=== PATIENT | male | born 1965 | race Caucasian/White ===

== ENCOUNTER 2018-05-05 15:46 | Emergency (ER) | payer MEDICARE, MEDICAID | END 2018-05-05 17:27 | disposition home or self-care (01) | LOC: M ED 15:46 | DX: K40.90 Unilateral inguinal hernia, without obstruction or gangrene, not specified as recurrent (principal); F10.10 Alcohol abuse, uncomplicated; F12.10 Cannabis abuse, uncomplicated; F17.210 Nicotine dependence, cigarettes, uncomplicated | CPT/HCPCS: 76857 ==

== ENCOUNTER 2018-07-31 16:53 | Emergency (ER) | payer MEDICARE, MEDICAID ==
[~2018-07-31] VITALS: Ht 175.3 cm; Wt 65.9 kg
[~2018-07-31 16:53] MED LIST: /PANT40TA PO; /THIA10TA OR; DILA100C PO; FOLI1TAB OR; THERAGRAM PO
[2018-07-31] MEDS ORDERED: PROZ10CA7 PO (17:05)
[2018-07-31] MEDS ORDERED: NS 1,000 ML IV ONE (17:30)
[2018-07-31] MEDS: MORPHINE 2 MG/ML 1ML SYRINGE (J2270) IV PRN ×2 (17:49→19:48)
[2018-07-31 18:03] LABS: BASO % 0.6 % (0.0-1.0); EOS # 0.1 10^3/uL (0.0-0.50); EOS % 1.7 % (0.0-3.0); HEMATOCRIT 42.9 % (42.0-52.0); HEMOGLOBIN 15.2 g/dl (13.5-17.5); LYMPH # 2.5 10^3/uL (1.5-4.5); LYMPH % 34.4 % (24.0-44.0); MEAN CORPUSCULAR HEMOGLOBIN 35.6 pg (27.0-33.0); MEAN CORPUSCULAR HGB CONC 35.4 g/dl (32.0-36.5); MEAN CORPUSCULAR VOLUME 100.5 fl (80.0-96.0); MONO # 0.7 10^3/uL (0.0-0.8); MONO % 9.1 % (0.0-5.0); NEUTROPHILS # 3.9 10^3/uL (1.8-7.7); NEUTROPHILS % 54.1 % (36.0-66.0); PLATELET COUNT, AUTOMATED 234 10^3/uL (150-450); RED BLOOD COUNT 4.27 10^6/uL (4.30-6.10); WHITE BLOOD COUNT 7.2 10^3/uL (4.0-10.0)
[2018-07-31 18:13] LABS: INR 0.96; PROTHROMBIN TIME 12.9 SECONDS (12.1-14.4)
[2018-07-31 18:14] LABS: PARTIAL THROMBOPLASTIN TIME 26.7 SECONDS (25.4-37.6)
[2018-07-31 18:26] LABS: AMPHETAMINES LEVEL URINE NEGATIVE (NEGATIVE); BARBITURATES URINE NEGATIVE (NEGATIVE); BENZODIAZEPINES URINE NEGATIVE (NEGATIVE); CANNABINOIDS URINE NEGATIVE (NEGATIVE); COCAINE METABOLITE URINE NEGATIVE (NEGATIVE); METHADONE URINE NEGATIVE (NEGATIVE); OPIATES URINE NEGATIVE (NEGATIVE); PHENCYCLIDINE URINE NEGATIVE (NEGATIVE)
[2018-07-31 18:35] LABS: ALBUMIN 3.8 GM/DL (3.2-5.2); ALT/SGPT 23 U/L (12-78); BILIRUBIN,DIRECT 0.1 MG/DL (0.0-0.2); BILIRUBIN,TOTAL 0.3 MG/DL (0.2-1.0); BLOOD UREA NITROGEN 6 MG/DL (7-18); CALCIUM LEVEL 8.6 MG/DL (8.5-10.1); CARBON DIOXIDE LEVEL 21 MEQ/L (21-32); CHLORIDE LEVEL 108 MEQ/L (98-107); CPK CREATINE PHOSPHOKINASE 202 U/L (39-308); CREATININE FOR GFR 0.73 MG/DL (0.70-1.30); ETHYL ALCOHOL (ETHANOL) 0.299 % (0.000-0.010); GLOMERULAR FILTRATION RATE > 60.0 (>56); GLUCOSE, FASTING 92 MG/DL (70-100); MB/CK RELATIVE INDEX 0.94 (< OR =4); POTASSIUM SERUM 3.5 MEQ/L (3.5-5.1); SODIUM LEVEL 140 MEQ/L (136-145); TOTAL PROTEIN 7.1 GM/DL (6.4-8.2); TROPONIN I < 0.02 NG/ML (< 0.10)
[2018-07-31 18:38] LABS: OSMOLALITY SERUM 360 MOSM/KG (275-295)
[2018-07-31] MEDS ORDERED: ISOVUE-370 76% 100ML VIAL (Q9967) As Ordered ONE (18:43)
--- NOTE | 2018-07-31 19:24 | REP ---
CT Lumbar Spine without contrast HISTORY: Abdominal pain COMPARISON: None There is no disc bulge or herniation at the L1-2, L2-3 and L5-L1 levels. The nerves exit the neural foramina without compression. A diffuse disc bulge is present at the L3-4 level. There is minimal compression of the thecal sac. The L3 nerves exit the neural foramina without compression. A diffuse disc bulge is present at the L4-5 level. There is minimal compression of the thecal sac. The L4 nerves exit the neural foramina without compression. The L3-4 and L4-5 intervertebral discs are decreased in height consistent with disc degeneration. There is no fracture or subluxation. IMPRESSION: Diffuse disc bulges at the L3-4 and L4-5 levels with minimal thecal sac compression. Electronically Signed by Azael Richards MD 07/31/2018 07:16 P
--- NOTE | 2018-07-31 19:47 | REPVR ---
EXAM: CT Abdomen and Pelvis With Contrast EXAM DATE/TIME: 07/31/2018 7:01 PM CLINICAL HISTORY: 53 years old, male; Pain; Abdominal pain; Generalized; Additional info: Abd pain TECHNIQUE: Axial computed tomography images of the abdomen and pelvis with intravenous contrast. All CT scans at this facility use at least one of these dose optimization techniques: automated exposure control; mA and/or kV adjustment per patient size (includes targeted exams where dose is matched to clinical indication); or iterative reconstruction. Coronal and sagittal reformatted images were created and reviewed. CONTRAST: 100 ml of ISOVUE 370 administered intravenously. COMPARISON: Pelvis, limited US 05/05/2018 4:27 PM FINDINGS: Lower thorax: Dependent changes within the lung bases. ABDOMEN: Liver: Findings suggestive of diffuse hepatic fatty infiltration. No focal hepatic lesion. No intrahepatic duct dilatation. Gallbladder and bile ducts: Unremarkable. No calcified stones. No ductal dilation. Pancreas: Unremarkable. No ductal dilation. Spleen: Unremarkable. No splenomegaly. Adrenals: Normal. No mass. Kidneys and ureters: Unremarkable. No stones. No hydronephrosis. Stomach and bowel: Fluid levels in the colon are nonspecific and may be seen with diarrhea illness. No mucosal thickening. No diverticulitis. Unremarkable stomach and small bowel. No bowel obstruction. Appendix: No evidence of appendicitis. PELVIS: Bladder: Distended urinary bladder. Reproductive: Unremarkable as visualized. ABDOMEN and PELVIS: Intraperitoneal space: Unremarkable. No free air. No significant fluid collection. Bones/joints: Mild degenerative spondylosis of the lower thoracic and lumbar spine. No fracture or suspicious bone lesions. Soft tissues: Unremarkable. Vasculature: Minimal atherosclerosis of the right and left common iliac arteries. No aneurysm. Lymph nodes: Unremarkable. No enlarged lymph nodes. IMPRESSION: 1. Nonspecific fluid levels within colon which may be seen with diarrhea illness. 2. Distended urinary bladder. 3. Findings suggestive of diffuse hepatic fatty infiltration. Electronically signed by: Delfino Mei On 07/31/2018 19:46:55 PM
[2018-07-31 19:48] VITALS: BP 128/75
--- NOTE | 2018-08-02 10:00 | ECGEPIP ---
Stationary ECG Study [facility] - ED Test Date: 2018-07-31 Pat Name: MILAGROS MARION Department: Room: - Gender: M [place]: [place] : 1965 Requested By: HAYLEY Hdez Order Number: [id number] Reading MD: Eli Adams Measurements Intervals [place] Rate: 56 P: 26 KS: 138 QRS: 14 QRSD: 119 T: -26 QT: 466 QTc: 450 Interpretive Statements SINUS BRADYCARDIA INCOMPLETE RIGHT BUNDLE BRANCH BLOCK NSTTW ABNORMALITY Electronically Signed On 08-02-2018 9:59:39 EST by Eli Adams
== END 2018-07-31 20:40 | disposition left against medical advice (07) ==
LOC: M ED 16:53 → EDBD 16:53 → M ED 20:40
DX: R10.9 Unspecified abdominal pain (principal); M54.5 Low back pain; F10.129 Alcohol abuse with intoxication, unspecified
CPT/HCPCS: 72131; 74177; 80048; 80076; 80307; 81001; 82140; 82550; 82553; 83605; 83930; 84443; 84484; 85025; 85610; 85730; 87040; 93005; 93041; 94760; 96374; 99285; G0480; J2270; Q9967

== ENCOUNTER → 2018-12-30 | Outpatient (CLI) | payer MEDICARE, MEDICAID ==
[~2018-12-30] MED LIST changes: -/PANT40TA PO; +PROT1TAB2 PO; +PROZ10CA7 PO
[2018-12-30 09:57] LABS: BASO # 0.1 10^3/uL (0.0-0.2); EOS # 0.3 10^3/uL (0.0-0.50); EOS % 4.7 % (0.0-3.0); HEMATOCRIT 43.5 % (42.0-52.0); HEMOGLOBIN 14.9 g/dl (13.5-17.5); LYMPH # 3.2 10^3/uL (1.5-4.5); LYMPH % 45.7 % (24.0-44.0); MEAN CORPUSCULAR HEMOGLOBIN 35.8 pg (27.0-33.0); MEAN CORPUSCULAR HGB CONC 34.3 g/dl (32.0-36.5); MEAN CORPUSCULAR VOLUME 104.6 fl (80.0-96.0); MONO # 0.9 10^3/uL (0.0-0.8); MONO % 13.4 % (0.0-5.0); NEUTROPHILS # 2.5 10^3/uL (1.8-7.7); NEUTROPHILS % 35.2 % (36.0-66.0); PLATELET COUNT, AUTOMATED 283 10^3/uL (150-450); RED BLOOD COUNT 4.16 10^6/uL (4.30-6.10)
[2018-12-30 10:26] LABS: BLOOD UREA NITROGEN 8 MG/DL (7-18); CALCIUM LEVEL 8.9 MG/DL (8.5-10.1); CARBON DIOXIDE LEVEL 26 MEQ/L (21-32); CHLORIDE LEVEL 110 MEQ/L (98-107); CHOLESTEROL LEVEL 184 MG/DL (<200); CHOLESTEROL RISK RATIO 1.586 (<5); CREATININE FOR GFR 0.79 MG/DL (0.70-1.30); GLOMERULAR FILTRATION RATE > 60.0 (>56); GLUCOSE, FASTING 86 MG/DL (70-100); HDL CHOLESTEROL 116 MG/DL (>40); LDL CHOLESTEROL 53 MG/DL (<100); NON-HDL-C 68 MG/DL; POTASSIUM SERUM 3.8 MEQ/L (3.5-5.1); SODIUM LEVEL 145 MEQ/L (136-145); TRIGLYCERIDES LEVEL 75 MG/DL (<150)
[2018-12-30 11:25] LABS: TOTAL 25(OH) VITAMIN D 26.5 NG/ML (30.0-100.0)
== END ==
LOC: M LAB 09:14
DX: Z51.81 Encounter for therapeutic drug level monitoring (principal); Z13.9 Encounter for screening, unspecified

== ENCOUNTER 2019-02-04 20:06 | Emergency (ER) | payer MEDICARE, MEDICAID ==
[~2019-02-04] VITALS: Ht 175.3 cm; Wt 72.7 kg
[2019-02-04 21:15] VITALS: BP 121/73
[2019-02-17] MEDS ORDERED: TRAZ-252 PO (13:12)
[2019-02-17] MEDS ORDERED: TRAM50TA2 PO (13:12)
== END 2019-02-04 21:29 | disposition home or self-care (01) ==
LOC: M ED 20:06
DX: K40.90 Unilateral inguinal hernia, without obstruction or gangrene, not specified as recurrent (principal); F10.220 Alcohol dependence with intoxication, uncomplicated; N50.819 Testicular pain, unspecified; Z79.899 Other long term (current) drug therapy

== ENCOUNTER 2019-02-06 13:52 | Emergency (ER) | payer MEDICARE, MEDICAID ==
[~2019-02-06] VITALS: Ht 175.3 cm; Wt 63.6 kg
[2019-02-06] MEDS ORDERED: NS 1,000 ML IV ONE (14:15)
[2019-02-06] MEDS ORDERED: MORPHINE 4 MG/ML 1ML VIAL/SYRINGE (J2270) IV ONE (14:30)
[2019-02-06 14:59] LABS: BASO # 0.1 10^3/uL (0.0-0.2); BASO % 0.9 % (0.0-1.0); EOS # 0.1 10^3/uL (0.0-0.50); EOS % 1.3 % (0.0-3.0); HEMATOCRIT 42.3 % (42.0-52.0); HEMOGLOBIN 15.1 g/dl (13.5-17.5); LYMPH # 2.6 10^3/uL (1.5-4.5); LYMPH % 29.4 % (24.0-44.0); MEAN CORPUSCULAR HEMOGLOBIN 36.1 pg (27.0-33.0); MEAN CORPUSCULAR HGB CONC 35.7 g/dl (32.0-36.5); MEAN CORPUSCULAR VOLUME 101.2 fl (80.0-96.0); MONO # 0.9 10^3/uL (0.0-0.8); NEUTROPHILS # 5.1 10^3/uL (1.8-7.7); NEUTROPHILS % 58.2 % (36.0-66.0); PLATELET COUNT, AUTOMATED 331 10^3/uL (150-450); RED BLOOD COUNT 4.18 10^6/uL (4.30-6.10); WHITE BLOOD COUNT 8.8 10^3/uL (4.0-10.0)
[2019-02-06 15:09] LABS: ALBUMIN 4.1 GM/DL (3.2-5.2); ALT/SGPT 40 U/L (12-78); BILIRUBIN,DIRECT 0.1 MG/DL (0.0-0.2); BILIRUBIN,TOTAL 0.2 MG/DL (0.2-1.0); BLOOD UREA NITROGEN 6 MG/DL (7-18); CALCIUM LEVEL 9.1 MG/DL (8.5-10.1); CARBON DIOXIDE LEVEL 23 MEQ/L (21-32); CHLORIDE LEVEL 107 MEQ/L (98-107); CREATININE FOR GFR 0.82 MG/DL (0.70-1.30); GLOMERULAR FILTRATION RATE > 60.0 (>56); GLUCOSE, FASTING 72 MG/DL (70-100); LIPASE 191 U/L (73-393); POTASSIUM SERUM 4.1 MEQ/L (3.5-5.1); SODIUM LEVEL 144 MEQ/L (136-145); TOTAL PROTEIN 7.6 GM/DL (6.4-8.2)
[2019-02-06 17:15] VITALS: BP 135/81
[2019-02-06] MEDS ORDERED: PERCOCET 5MG/325MG TAB PO ONE (17:15)
[2019-02-06] MEDS ORDERED: PERC5TAB12 PO (17:50)
[2019-02-17] MEDS ORDERED: TRAM50TA2 PO (13:12)
[2019-02-17] MEDS ORDERED: TRAZ-252 PO (13:12)
== END 2019-02-06 18:40 | disposition home or self-care (01) ==
LOC: M ED 13:52 → EDBD 13:52 → M ED 18:40
DX: K40.90 Unilateral inguinal hernia, without obstruction or gangrene, not specified as recurrent (principal); F10.10 Alcohol abuse, uncomplicated; Z79.899 Other long term (current) drug therapy; F17.210 Nicotine dependence, cigarettes, uncomplicated
CPT/HCPCS: 80048; 80076; 83605; 83690; 85025; 93041; 96361; 96374; 99285; J2270

== ENCOUNTER 2019-02-19 19:12 | Emergency (ER) | payer MEDICARE, MEDICAID ==
[~2019-02-19] VITALS: Ht 175.3 cm; Wt 73.0 kg
[~2019-02-19 19:12] MED LIST changes: +PERC5TAB12 PO; +TRAM50TA2 PO; +TRAZ-252 PO
[2019-02-19 20:45] LABS: BASO # 0.1 10^3/uL (0.0-0.2); BASO % 0.8 % (0.0-1.0); EOS # 0.2 10^3/uL (0.0-0.50); EOS % 2.7 % (0.0-3.0); HEMOGLOBIN 14.3 g/dl (13.5-17.5); LYMPH # 2.6 10^3/uL (1.5-4.5); LYMPH % 34.9 % (24.0-44.0); MEAN CORPUSCULAR HEMOGLOBIN 36.1 pg (27.0-33.0); MEAN CORPUSCULAR HGB CONC 35.8 g/dl (32.0-36.5); MONO % 13.8 % (0.0-5.0); NEUTROPHILS # 3.6 10^3/uL (1.8-7.7); NEUTROPHILS % 47.5 % (36.0-66.0); PLATELET COUNT, AUTOMATED 203 10^3/uL (150-450); RED BLOOD COUNT 3.96 10^6/uL (4.30-6.10); WHITE BLOOD COUNT 7.5 10^3/uL (4.0-10.0)
[2019-02-19 21:03] LABS: ALBUMIN 3.4 GM/DL (3.2-5.2); ALT/SGPT 42 U/L (12-78); BILIRUBIN,DIRECT 0.1 MG/DL (0.0-0.2); BILIRUBIN,TOTAL 0.2 MG/DL (0.2-1.0); BLOOD UREA NITROGEN 11 MG/DL (7-18); CALCIUM LEVEL 8.4 MG/DL (8.5-10.1); CARBON DIOXIDE LEVEL 28 MEQ/L (21-32); CHLORIDE LEVEL 106 MEQ/L (98-107); CREATININE FOR GFR 1.13 MG/DL (0.70-1.30); GLOMERULAR FILTRATION RATE > 60.0 (>56); GLUCOSE, FASTING 82 MG/DL (70-100); LIPASE 467 U/L (73-393); POTASSIUM SERUM 4.1 MEQ/L (3.5-5.1); SODIUM LEVEL 142 MEQ/L (136-145); TOTAL PROTEIN 6.6 GM/DL (6.4-8.2)
[2019-02-19] MEDS ORDERED: traMADol 50 MG TAB PO ONE (21:30)
[2019-02-19] MEDS ORDERED: TRAM50TA2 PO (22:06)
[2019-02-19 22:15] VITALS: BP 141/98
--- NOTE | 2019-02-20 08:18 | REP ---
It abdominal series: Three views. History: Abdomen pain. Comparison study: January 02, 2013. Findings: Upright chest radiograph shows EKG monitoring electrodes. Lungs are clear. There is no evidence of infiltrate or free subdiaphragmatic air. Heart size is normal. Supine and erect views of the abdomen demonstrate a normal bowel gas pattern. Psoas margins and flank stripes are intact. No mass or organomegaly is seen. Some costal cartilage calcification overlies the right upper quadrant. No significant bony abnormality. Impression: Negative abdominal series views. Electronically Signed by Esau Thomas MD 02/20/2019 08:09 A
== END 2019-02-19 22:28 | disposition home or self-care (01) ==
LOC: M ED 19:12
DX: K85.90 Acute pancreatitis without necrosis or infection, unspecified (principal); Z72.0 Tobacco use; Z79.899 Other long term (current) drug therapy

== ENCOUNTER 2019-02-25 08:33 | Day surgery (SDC) | payer MEDICARE, MEDICAID ==
[~2019-02-25] VITALS: Ht 175.3 cm; Wt 61.0 kg
[~2019-02-25 08:33] MED LIST changes: +LIDOCAINE 1% MDV 20ML VIAL SQ PRN; +LIDOCAINE 2% INJ 100 MG/5 ML SDV (FOR ANES.) As Ordered ONE; +LR 1,000 ML IV ONE; +MIDAZOLAM INJ 2 MG/2 ML VIAL (J2250) As Ordered ONE; +ONDANSETRON 4MG/2ML VIAL (J2405) As Ordered ONE; +PROPOFOL 200 MG/20 ML VIAL As Ordered ONE; +ROCURONIUM BROMIDE 50 MG/5 ML VIAL As Ordered ONE; +SUGAMMADEX SODIUM 500 MG/5 ML VIAL (BRIDION) As Ordered ONE; +ceFAZolin SOD 1 GM in D5W MINI-BAG PLUS 50 ML IV ONE; +dexameTHASONE 4 MG/ML 1ML VIAL (J1100) As Ordered ONE; +fentaNYL 250 MCG/5 ML INJECTION (J3010) As Ordered ONE
[2019-02-25] MEDS ORDERED: ZYPR2.5T2 PO (09:20)
[2019-02-25] MEDS ORDERED: BUPIVACAINE/EPIN 0.25% 30 ML VIAL As Ordered ONE (12:24)
[2019-02-25] MEDS ORDERED: ACETAMINOPHEN 1000MG 100ML IV BTL (OFIRMEV) (J0131 PER 10MG) As Ordered ONE (13:25)
[2019-02-25] MEDS ORDERED: ROCURONIUM BROMIDE 50 MG/5 ML VIAL As Ordered ONE (13:37)
[2019-02-25] MEDS ORDERED: LABETALOL HCL 100 MG/20 ML VIAL As Ordered ONE (13:46)
[2019-02-25] MEDS ORDERED: METOPROLOL 5 MG/5 ML VIAL As Ordered ONE (14:03)
[2019-02-25] MEDS ORDERED: KETOROLAC 60 MG/2 ML VIAL (J1885) As Ordered ONE (14:20)
--- NOTE | 2019-02-25 14:53 | RO ---
DATE OF PROCEDURE: 02/25/2019 PREOPERATIVE DIAGNOSIS: Right inguinal hernia. POSTPROCEDURE DIAGNOSIS: Right inguinal hernia (indirect). PROCEDURE: Robotic-assisted laparoscopic right inguinal hernia repair with ProGrip mesh. SURGEON: Dr. Paco Tuttle RN FAMILY PRACTICE: Sudha Lee NP (provided instrument exchange, trocar placement, abdominal wall closure, and mesh placement). ANESTHESIA: General endotracheal anesthesia. ESTIMATED BLOOD LOSS: 25 mL. FLUIDS: Crystalloid. DISPOSITION: The patient was taken to recovery room awake, alert and hemodynamic stable. Sponge and needle counts correct times two. BRIEF OPERATIVE SUMMARY: The patient was taken to the operating room and was given general anesthesia. After adequate anesthesia and preoperative antibiotics were given, the patient was prepped and draped in the usual sterile fashion. Next, a supraumbilical incision was made with skin knife. Blunt dissection was carried down to fascia, Veress needle placed into the abdominal cavity and insufflated to 15 mm of pressure. An 8 mm trocar was placed at this time and two lateral 8 mm trocars were placed. The camera was docked/robot was docked and the patient was placed in steep Trendelenburg position. The peritoneum was taken down with monopolar cut scissors and using a combination of blunt and sharp dissection, as well as electrocautery, the peritoneal flap was created, taking care to make sure this was off the pubis and laterally off the internal ring. The indirect hernia was quite adherent to the cord structures. It was relatively difficult to dissect off this bluntly without causing some oozing but eventually after adequate dissection of this and specifically in the distal end of the hernia sac, the hernia sac was mobilized off the cord structures, off the vas and off the vessels. Next, the ProGrip mesh was placed in the preperitoneal space and pressed into position. I did leave some Raquel in the bed of the dissection given some oozing that had occurred but there was no active bleeding appreciated. The rest of the sites were cleaned and dried when the peritoneum was closed with 3-0 V-Loc suture. The abdomen was desufflated, trocars removed and incisions were closed with 4-0 Vicryl. Steri-Strips and dry sterile dressing was applied. The patient was awakened, extubated, and brought to the recovery room awake, alert and hemodynamic stable. Sponge and needle counts correct times two.
[2019-02-25] MEDS ORDERED: MORPHINE 4 MG/ML 1ML VIAL/SYRINGE (J2270) IV PRN (15:00)
[2019-02-25] MEDS ORDERED: LR 1,000 ML IV SCH ×2 (15:00)
[2019-02-25] MEDS ORDERED: PERCOCET 5MG/325MG TAB PO PRN (15:00)
[2019-02-25] MEDS ORDERED: fentaNYL 100 MCG/2 ML INJECTION (J3010) IV PRN (15:00)
[2019-02-25] MEDS ORDERED: NORCO, ANEXSIA 5/325MG TABLET (HYDROcodone/ACETAMINOPHEN) PO PRN (15:00)
[2019-02-25] MEDS ORDERED: ONDANSETRON 4MG/2ML VIAL (J2405) IV PRN (15:00)
[2019-02-25] MEDS ORDERED: MORPHINE 10 MG/ML 1ML VIAL (J2270) IV PRN (15:00)
[2019-02-25 16:49] VITALS: BP 150/80
[2019-02-25] MEDS ORDERED: KETOROLAC 30 MG/ML VIAL (J1885) IV SCH (20:00)
== END 2019-02-25 16:53 | disposition home or self-care (01) ==
LOC: M SDC 08:33
PROVIDERS: ATTEND Surgery
DX: K40.90 Unilateral inguinal hernia, without obstruction or gangrene, not specified as recurrent (principal); F41.9 Anxiety disorder, unspecified; F32.9 Major depressive disorder, single episode, unspecified; G40.909 Epilepsy, unspecified, not intractable, without status epilepticus; Z79.899 Other long term (current) drug therapy; F17.210 Nicotine dependence, cigarettes, uncomplicated
CPT/HCPCS: 49650; C1781; J0131; J0690; J1100; J1885; J2250; J2405; J3010

== ENCOUNTER 2020-10-21 13:45 | Emergency (ER) | payer MEDICARE, MEDICAID ==
[~2020-10-21] VITALS: Ht 175.3 cm; Wt 75.0 kg
[~2020-10-21 13:45] MED LIST changes: -LIDOCAINE 1% MDV 20ML VIAL SQ PRN; -LIDOCAINE 2% INJ 100 MG/5 ML SDV (FOR ANES.) As Ordered ONE; -LR 1,000 ML IV ONE; -MIDAZOLAM INJ 2 MG/2 ML VIAL (J2250) As Ordered ONE; -ONDANSETRON 4MG/2ML VIAL (J2405) As Ordered ONE; -PROPOFOL 200 MG/20 ML VIAL As Ordered ONE; -ROCURONIUM BROMIDE 50 MG/5 ML VIAL As Ordered ONE; -SUGAMMADEX SODIUM 500 MG/5 ML VIAL (BRIDION) As Ordered ONE; +ZYPR2.5T2 PO; -ceFAZolin SOD 1 GM in D5W MINI-BAG PLUS 50 ML IV ONE; -dexameTHASONE 4 MG/ML 1ML VIAL (J1100) As Ordered ONE; -fentaNYL 250 MCG/5 ML INJECTION (J3010) As Ordered ONE
[2020-10-21] MEDS ORDERED: IBUP200C28 PO (13:56)
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
[2020-10-21] MEDS ORDERED: KETOROLAC 60MG 2ML VIAL IM ONE (19:00)
[2020-10-21 19:11] VITALS: BP 128/77
== END 2020-10-21 19:17 | disposition home or self-care (01) ==
LOC: M ED 13:45 → EDBD 13:45 → M ED 19:17
DX: M54.5 Low back pain (principal); W01.0XXA Fall on same level from slipping, tripping and stumbling without subsequent striking against object, initial encounter; Y92.019 Unspecified place in single-family (private) house as the place of occurrence of the external cause; Y93.9 Activity, unspecified; Y99.9 Unspecified external cause status; M50.321 Other cervical disc degeneration at C4-C5 level; M50.322 Other cervical disc degeneration at C5-C6 level; M50.323 Other cervical disc degeneration at C6-C7 level; M50.31 Other cervical disc degeneration, high cervical region; M25.78 Osteophyte, vertebrae; F10.10 Alcohol abuse, uncomplicated; R56.9 Unspecified convulsions; F17.200 Nicotine dependence, unspecified, uncomplicated; Z79.899 Other long term (current) drug therapy
CPT/HCPCS: 70450; 72125; 72131; 96372; 99284; J1885

== ENCOUNTER 2022-07-10 15:21 | Inpatient (IN) | payer MEDICARE, MEDICAID ==
[~2022-07-10] VITALS: Ht 175.3 cm; Wt 72.7 kg
[~2022-07-10 15:21] MED LIST changes: +IBUP200C28 PO
[2022-07-10 15:51] LABS: BASO % 0.2 % (0.0-1.0); EOS % 0.1 % (0.0-3.0); HEMOGLOBIN 10.9 g/dl (13.5-17.5); LYMPH # 1.8 10^3/uL (1.5-5.0); MEAN CORPUSCULAR HEMOGLOBIN 28.9 pg (27.0-33.0); MEAN CORPUSCULAR VOLUME 87.5 fl (80.0-96.0); NEUTROPHILS # 6.2 10^3/uL (1.5-8.5); NEUTROPHILS % 63.5 % (36.0-66.0); PLATELET COUNT, AUTOMATED 205 10^3/uL (150-450); RED BLOOD COUNT 3.77 10^6/uL (4.30-6.10); WHITE BLOOD COUNT 9.8 10^3/uL (4.0-10.0)
[2022-07-10] MEDS ORDERED: POTASSIUM CHLORIDE 10MEQ SR TABLET PO ONE (16:00)
[2022-07-10 16:03] LABS: MONO # 1.8 10^3/uL (0.0-0.8); MONO % 17.9 % (2.0-8.0)
[2022-07-10] MEDS ORDERED: MORPHINE 4 MG/ML 1ML VIAL IV ONE (16:05)
[2022-07-10] MEDS ORDERED: NS 1,000 ML IV ONE (16:05)
[2022-07-10] MEDS ORDERED: ISOVUE-370 76% 100ML VIAL As Ordered ONE (16:14)
[2022-07-10 16:15] LABS: ALBUMIN 3.3 G/DL (3.2-5.2); BILIRUBIN,DIRECT 0.3 MG/DL (<0.4); BILIRUBIN,TOTAL 0.7 MG/DL (0.3-1.2)
[2022-07-10] MEDS ORDERED: OLAN1TAB16 PO (19:06)
[2022-07-10] MEDS ORDERED: med rec comment (19:07)
[2022-07-10] MEDS ORDERED: HOME MED LIST COMPLETE! XX SCH (19:10)
[2022-07-10] MEDS ORDERED: MORPHINE 2 MG/ML 1ML VIAL IV PRN (19:25)
[2022-07-10] MEDS ORDERED: ACETAMINOPHEN TAB 650MG DOSE (2X325MG) PO PRN (19:25)
[2022-07-10 19:35] LABS: RSV AMPLIFICATION NEGATIVE (NEGATIVE)
[2022-07-10] MEDS: cefTRIAXone SOD 1 GM in D5W MINI-BAG PLUS 50 ML IV SCH (20:01)
[2022-07-10] MEDS ORDERED: ONDANSETRON 4MG 2ML VIAL IV PRN (20:30)
[2022-07-10] MEDS ORDERED: NS 1,000 ML IV SCH (20:30)
[2022-07-10] MEDS ORDERED: NICOTINE 21MG/24HR 1 EA TRANSDERMAL TD PRN (20:30)
[2022-07-10 22:30] VITALS: BP 151/99
[2022-07-10] MEDS ORDERED: MORPHINE 2 MG/ML 1ML VIAL IV ONE (22:45)
[2022-07-10 22:56] VITALS: BP 138/93
[2022-07-10 23:58] LABS: BLOOD UREA NITROGEN < 5 MG/DL (9-23); CALCIUM LEVEL 8.4 MG/DL (8.5-10.1); CARBON DIOXIDE LEVEL 24 MMOL/L (20-31); CHLORIDE LEVEL 99 MMOL/L (98-107); CREATININE FOR GFR 0.61 MG/DL (0.70-1.30); GLOMERULAR FILTRATION RATE > 60.0 (>56); GLUCOSE, FASTING 94 MG/DL (60-100); POTASSIUM SERUM 3.5 MMOL/L (3.5-5.1); SODIUM LEVEL 134 MMOL/L (136-145)
[2022-07-11] MEDS ORDERED: LORazepam 2 MG TAB PO PRN (02:00)
[2022-07-11] MEDS: THIAMINE 100 MG TAB PO SCH ×3 (02:56→20:14)
[2022-07-11] MEDS: MORPHINE 4 MG/ML 1ML VIAL IV PRN ×5 (03:00→22:16)
[2022-07-11 05:39] VITALS: BP 142/83
[2022-07-11 06:00] VITALS: BP 138/93
[2022-07-11 06:00] LABS: HEMATOCRIT 32.2 % (42.0-52.0); HEMOGLOBIN 10.4 g/dl (13.5-17.5); MEAN CORPUSCULAR HEMOGLOBIN 28.6 pg (27.0-33.0); MEAN CORPUSCULAR HGB CONC 32.3 g/dl (32.0-36.5); MEAN CORPUSCULAR VOLUME 88.5 fl (80.0-96.0); PLATELET COUNT, AUTOMATED 197 10^3/uL (150-450); RED BLOOD COUNT 3.64 10^6/uL (4.30-6.10); WHITE BLOOD COUNT 7.7 10^3/uL (4.0-10.0)
[2022-07-11 06:23] LABS: MAGNESIUM LEVEL 1.9 MG/DL (1.8-2.4)
[2022-07-11 06:29] LABS: ALBUMIN 2.9 G/DL (3.2-5.2); ALKALINE PHOSPHATASE 64 U/L (46-116); ALT/SGPT 28 U/L (7.0-40); AST/SGOT 34 U/L (<34); BILIRUBIN,TOTAL 0.7 MG/DL (0.3-1.2); BLOOD UREA NITROGEN 9 MG/DL (9-23); CALCIUM LEVEL 8.4 MG/DL (8.5-10.1); CARBON DIOXIDE LEVEL 26 MMOL/L (20-31); CHLORIDE LEVEL 102 MMOL/L (98-107); CREATININE FOR GFR 0.65 MG/DL (0.70-1.30); GLOMERULAR FILTRATION RATE > 60.0 (>56); GLUCOSE, FASTING 79 MG/DL (60-100); POTASSIUM SERUM 3.9 MMOL/L (3.5-5.1); SODIUM LEVEL 137 MMOL/L (136-145); TOTAL PROTEIN 6.3 G/DL (5.7-8.2)
[2022-07-11] MEDS ORDERED: GLUCAGON INJ 1MG VIAL SC PRN (08:00)
[2022-07-11] MEDS ORDERED: DEXTROSE 50% 50ML SYRINGE IV PRN (08:00)
[2022-07-11] MEDS ORDERED: GLUCOSE 4GM CHEW TABLET PO PRN (08:00)
[2022-07-11] MEDS: FOLIC ACID 1MG TAB PO SCH (08:14)
[2022-07-11] MEDS: MULTIVITAMINS/MINERALS THERAP 1 TAB PO SCH (08:14)
[2022-07-11] MEDS: D5W/0.45% SODIUM CHLORIDE 1,000 ML IV SCH ×2 (08:56→20:13)
[2022-07-11] MEDS ORDERED: ISOVUE-300 61% 50ML VIAL As Ordered ONE (12:21)
[2022-07-11 14:00] VITALS: BP_SYST 125; BP_SYST 151; BP_DIAS 86; BP_DIAS 90
[2022-07-11] MEDS: cefTRIAXone SOD 1 GM in D5W MINI-BAG PLUS 50 ML IV SCH (20:14)
[2022-07-11] MEDS ORDERED: traZODone 50 MG TAB PO SCH (21:00)
[2022-07-11] MEDS ORDERED: OLANZapine 5 MG TAB PO SCH (21:00)
[2022-07-11 21:47] VITALS: BP 135/82
[2022-07-11 22:00] VITALS: BP 135/82
[2022-07-12] MEDS: MORPHINE 4 MG/ML 1ML VIAL IV PRN ×3 (04:09→11:34)
[2022-07-12 05:24] VITALS: BP 134/80
[2022-07-12] MEDS: FOLIC ACID 1MG TAB PO SCH (07:42)
[2022-07-12] MEDS: MULTIVITAMINS/MINERALS THERAP 1 TAB PO SCH (07:42)
[2022-07-12] MEDS: THIAMINE 100 MG TAB PO SCH (07:42)
[2022-07-12] MEDS ORDERED: NICO21PAT TD (12:19)
[2022-07-12] MEDS ORDERED: THIA100TA PO (12:20)
[2022-07-12] MEDS ORDERED: VITMTA PO (12:20)
[2022-07-12] MEDS ORDERED: FOLI1TAB11 PO (12:20)
== END 2022-07-12 15:45 | disposition home or self-care (01) | DRG 392 ==
LOC: EDBD 15:21 → M ED 15:46 → M ED INP 19:25 → M MS5PR 22:30
PROVIDERS: ADMIT Internal Medicine; ATTEND General Practice
DX: R10.84 Generalized abdominal pain (principal); J98.11 Atelectasis; E87.1 Hypo-osmolality and hyponatremia; R93.41 Abnormal radiologic findings on diagnostic imaging of renal pelvis, ureter, or bladder; F10.129 Alcohol abuse with intoxication, unspecified; F31.9 Bipolar disorder, unspecified; F17.210 Nicotine dependence, cigarettes, uncomplicated; F32.A Depression, unspecified; D63.8 Anemia in other chronic diseases classified elsewhere; F41.9 Anxiety disorder, unspecified; Z91.14 Patient's other noncompliance with medication regimen; Z79.899 Other long term (current) drug therapy; R31.9 Hematuria, unspecified

== ENCOUNTER 2022-07-14 09:06 | Inpatient (IN) | payer MEDICARE, MEDICAID ==
[~2022-07-14] VITALS: Ht 175.3 cm; Wt 68.6 kg
[~2022-07-14 09:06] MED LIST changes: +FOLI1TAB11 PO; +NICO21PAT TD; +OLAN1TAB16 PO; +THIA100TA PO; +VITMTA PO; +med rec comment
[2022-07-14] MEDS ORDERED: MORPHINE 4 MG/ML 1ML VIAL IV ONE ×2 (11:40→15:10)
[2022-07-14] MEDS ORDERED: NS 1,000 ML IV ONE (11:40)
[2022-07-14] MEDS ORDERED: ONDANSETRON 4MG 2ML VIAL IV ONE (11:40)
[2022-07-14 11:59] LABS: BASO % 0.6 % (0.0-1.0); EOS # 0.1 10^3/uL (0.0-0.5); EOS % 2.2 % (0.0-3.0); HEMATOCRIT 33.5 % (42.0-52.0); HEMOGLOBIN 10.7 g/dl (13.5-17.5); MEAN CORPUSCULAR HEMOGLOBIN 28.9 pg (27.0-33.0); MEAN CORPUSCULAR HGB CONC 31.9 g/dl (32.0-36.5); MEAN CORPUSCULAR VOLUME 90.5 fl (80.0-96.0); MONO % 19.8 % (2.0-8.0); PLATELET COUNT, AUTOMATED 286 10^3/uL (150-450); WHITE BLOOD COUNT 5.1 10^3/uL (4.0-10.0)
[2022-07-14 12:28] LABS: LIPASE 49 U/L (12-53)
[2022-07-14 12:30] LABS: ALBUMIN 3.3 G/DL (3.2-5.2); ALKALINE PHOSPHATASE 75 U/L (46-116); ALT/SGPT 62 U/L (7.0-40); AST/SGOT 112 U/L (<34); BILIRUBIN,TOTAL 0.4 MG/DL (0.3-1.2); BLOOD UREA NITROGEN 9 MG/DL (9-23); CALCIUM LEVEL 9.1 MG/DL (8.5-10.1); CARBON DIOXIDE LEVEL 26 MMOL/L (20-31); CHLORIDE LEVEL 104 MMOL/L (98-107); CREATININE FOR GFR 0.68 MG/DL (0.70-1.30); GLOMERULAR FILTRATION RATE > 60.0 (>56); GLUCOSE, FASTING 98 MG/DL (60-100); POTASSIUM SERUM 3.9 MMOL/L (3.5-5.1); SODIUM LEVEL 141 MMOL/L (136-145); TOTAL PROTEIN 7.2 G/DL (5.7-8.2)
[2022-07-14 12:31] LABS: BILIRUBIN,DIRECT 0.2 MG/DL (<0.4)
[2022-07-14] MEDS ORDERED: ISOVUE-370 76% 100ML VIAL As Ordered ONE (12:39)
[2022-07-14] MEDS ORDERED: cefTRIAXone SOD 1 GM in D5W MINI-BAG PLUS 50 ML IV ONE (14:45)
[2022-07-14] MEDS ORDERED: NICO21PAT TOP (15:28)
[2022-07-14] MEDS ORDERED: THIA100TA PO (15:28)
[2022-07-14] MEDS ORDERED: FOLI1TAB11 PO (15:28)
[2022-07-14] MEDS ORDERED: VITMTA PO (15:28)
[2022-07-14] MEDS ORDERED: ACETAMINOPHEN TAB 650MG DOSE (2X325MG) PO PRN (15:30)
[2022-07-14] MEDS ORDERED: HOME MED LIST COMPLETE! XX SCH (15:30)
[2022-07-14] MEDS ORDERED: NICOTINE 21MG/24HR 1 EA TRANSDERMAL TOP PRN (15:30)
[2022-07-14] MEDS ORDERED: LORazepam 2 MG TAB PO PRN (15:30)
[2022-07-14 16:50] LABS: GC DNA AMPLIFICATION NEGATIVE (NEGATIVE)
[2022-07-14 17:44] LABS: RSV AMPLIFICATION NEGATIVE (NEGATIVE)
[2022-07-14] MEDS: THIAMINE 100 MG TAB PO SCH (21:42)
[2022-07-14] MEDS: MORPHINE 2 MG/ML 1ML VIAL IV PRN (21:43)
[2022-07-14] MEDS: traZODone 50 MG TAB PO SCH (21:43)
[2022-07-14] MEDS: OLANZapine 5 MG TAB PO SCH (21:43)
[2022-07-14] MEDS: oxyBUTYnin 5 MG TAB PO SCH (21:43)
[2022-07-15] VITALS (7 sets, daily range): BP systolic 127–142; BP diastolic 66–152
[2022-07-15] MEDS: cefTRIAXone SOD 2 GM in D5W MINI-BAG PLUS 50 ML IV SCH (02:57)
[2022-07-15] MEDS: MORPHINE 2 MG/ML 1ML VIAL IV PRN ×4 (02:58→20:15)
[2022-07-15 06:33] LABS: HEMOGLOBIN 9.5 g/dl (13.5-17.5); MEAN CORPUSCULAR HEMOGLOBIN 28.7 pg (27.0-33.0); MEAN CORPUSCULAR HGB CONC 31.7 g/dl (32.0-36.5); MEAN CORPUSCULAR VOLUME 90.6 fl (80.0-96.0); PLATELET COUNT, AUTOMATED 252 10^3/uL (150-450); RED BLOOD COUNT 3.31 10^6/uL (4.30-6.10); WHITE BLOOD COUNT 4.4 10^3/uL (4.0-10.0)
[2022-07-15 06:57] LABS: MAGNESIUM LEVEL 1.5 MG/DL (1.8-2.4)
[2022-07-15 07:00] LABS: ALBUMIN 2.7 G/DL (3.2-5.2); ALKALINE PHOSPHATASE 63 U/L (46-116); ALT/SGPT 40 U/L (7.0-40); AST/SGOT 53 U/L (<34); BILIRUBIN,TOTAL 0.4 MG/DL (0.3-1.2); BLOOD UREA NITROGEN 9 MG/DL (9-23); CALCIUM LEVEL 8.2 MG/DL (8.5-10.1); CARBON DIOXIDE LEVEL 29 MMOL/L (20-31); CHLORIDE LEVEL 101 MMOL/L (98-107); CREATININE FOR GFR 0.75 MG/DL (0.70-1.30); GLOMERULAR FILTRATION RATE > 60.0 (>56); GLUCOSE, FASTING 87 MG/DL (60-100); POTASSIUM SERUM 3.4 MMOL/L (3.5-5.1); SODIUM LEVEL 136 MMOL/L (136-145); TOTAL PROTEIN 6.1 G/DL (5.7-8.2)
[2022-07-15] MEDS: oxyBUTYnin 5 MG TAB PO SCH ×2 (07:51→20:15)
[2022-07-15] MEDS: MULTIVITAMINS/MINERALS THERAP 1 TAB PO SCH (07:51)
[2022-07-15] MEDS: ENOXAPARIN 40MG/0.4ML SYRINGE (J1650 PER 10MG) SC SCH (07:51)
[2022-07-15] MEDS: THIAMINE 100 MG TAB PO SCH ×2 (07:51→20:14)
[2022-07-15] MEDS: FOLIC ACID 1MG TAB PO SCH (07:51)
[2022-07-15] MEDS ORDERED: POTASSIUM CHLORIDE 10MEQ SR TABLET PO ONE (08:00)
[2022-07-15] MEDS ORDERED: MAGNESIUM OXIDE 400MG TAB (MAG-OX) PO ONE (08:00)
[2022-07-15] MEDS: oxyCODONE 5MG TAB PO PRN ×2 (16:37→22:55)
[2022-07-15] MEDS: OLANZapine 5 MG TAB PO SCH (20:14)
[2022-07-15] MEDS: traZODone 50 MG TAB PO SCH (20:14)
[2022-07-16] MEDS: cefTRIAXone SOD 2 GM in D5W MINI-BAG PLUS 50 ML IV SCH (03:10)
[2022-07-16] MEDS: MORPHINE 2 MG/ML 1ML VIAL IV PRN ×2 (03:16→09:29)
[2022-07-16] MEDS: oxyCODONE 5MG TAB PO PRN (05:18)
[2022-07-16 06:11] VITALS: BP 125/73
[2022-07-16 06:48] VITALS: BP 125/73
[2022-07-16] MEDS: oxyBUTYnin 5 MG TAB PO SCH (08:22)
[2022-07-16] MEDS: THIAMINE 100 MG TAB PO SCH (08:22)
[2022-07-16] MEDS: MULTIVITAMINS/MINERALS THERAP 1 TAB PO SCH (08:22)
[2022-07-16] MEDS: FOLIC ACID 1MG TAB PO SCH (08:22)
[2022-07-16] MEDS: ENOXAPARIN 40MG/0.4ML SYRINGE (J1650 PER 10MG) SC SCH (08:24)
[2022-07-16 08:31] LABS: BASO # 0.1 10^3/uL (0.0-0.2); EOS # 0.3 10^3/uL (0.0-0.5); EOS % 5.2 % (0.0-3.0); HEMATOCRIT 30.6 % (42.0-52.0); HEMOGLOBIN 9.6 g/dl (13.5-17.5); LYMPH # 1.7 10^3/uL (1.5-5.0); LYMPH % 35.3 % (24.0-44.0); MEAN CORPUSCULAR HEMOGLOBIN 28.9 pg (27.0-33.0); MEAN CORPUSCULAR HGB CONC 31.4 g/dl (32.0-36.5); MEAN CORPUSCULAR VOLUME 92.2 fl (80.0-96.0); MONO # 1.2 10^3/uL (0.0-0.8); MONO % 23.9 % (2.0-8.0); NEUTROPHILS # 1.7 10^3/uL (1.5-8.5); NEUTROPHILS % 34.4 % (36.0-66.0); PLATELET COUNT, AUTOMATED 304 10^3/uL (150-450); RED BLOOD COUNT 3.32 10^6/uL (4.30-6.10); WHITE BLOOD COUNT 4.9 10^3/uL (4.0-10.0)
[2022-07-16 08:41] LABS: MAGNESIUM LEVEL 1.8 MG/DL (1.8-2.4)
[2022-07-16 08:46] LABS: ALBUMIN 2.8 G/DL (3.2-5.2); ALKALINE PHOSPHATASE 65 U/L (46-116); ALT/SGPT 41 U/L (7.0-40); AST/SGOT 38 U/L (<34); BILIRUBIN,TOTAL 0.3 MG/DL (0.3-1.2); BLOOD UREA NITROGEN < 5 MG/DL (9-23); CALCIUM LEVEL 8.6 MG/DL (8.5-10.1); CARBON DIOXIDE LEVEL 29 MMOL/L (20-31); CHLORIDE LEVEL 100 MMOL/L (98-107); CREATININE FOR GFR 0.65 MG/DL (0.70-1.30); GLOMERULAR FILTRATION RATE > 60.0 (>56); GLUCOSE, FASTING 91 MG/DL (60-100); POTASSIUM SERUM 3.9 MMOL/L (3.5-5.1); SODIUM LEVEL 137 MMOL/L (136-145); TOTAL PROTEIN 6.2 G/DL (5.7-8.2)
[2022-07-16] MEDS ORDERED: OXYB5TAB10 PO (11:17)
[2022-07-16] MEDS ORDERED: BACT800T5 PO (11:17)
[2022-07-16] MEDS ORDERED: OXYC-517 PO (11:17)
== END 2022-07-16 13:12 | disposition home or self-care (01) | DRG 700 ==
LOC: M ED 09:06 → M ED INP 16:31 → ENRESERV 07-15 12:22 → UNDODISIN 07-15 13:35 → M MSPAV 07-15 14:49
PROVIDERS: ADMIT Family Medicine; ATTEND Family Medicine
DX: S37.29XA Other injury of bladder, initial encounter (principal); F32.A Depression, unspecified; F41.9 Anxiety disorder, unspecified; F10.10 Alcohol abuse, uncomplicated; Z79.899 Other long term (current) drug therapy; W18.30XA Fall on same level, unspecified, initial encounter; Y92.009 Unspecified place in unspecified non-institutional (private) residence as the place of occurrence of the external cause; F17.200 Nicotine dependence, unspecified, uncomplicated

== ENCOUNTER → 2022-07-20 | Outpatient (CLI) | payer MEDICARE, MEDICAID ==
[~2022-07-20] MED LIST changes: +BACT800T5 PO; +CYSTO-CONRAY II 17.2% 250ML VIAL As Ordered ONE; +NICO21PAT TOP; +OXYB5TAB10 PO; +OXYC-517 PO
== END ==
LOC: M RADPRO 11:23
PROVIDERS: ATTEND Urology
DX: N32.89 Other specified disorders of bladder (principal)
CPT/HCPCS: 51610; 74430; Q9958

== ENCOUNTER 2023-02-26 19:40 | Emergency (ER) | payer MEDICARE, MEDICAID ==
[~2023-02-26] VITALS: Ht 175.3 cm; Wt 68.5 kg
[~2023-02-26 19:40] MED LIST changes: -CYSTO-CONRAY II 17.2% 250ML VIAL As Ordered ONE
[2023-02-26 21:16] LABS: BASO # 0.1 10^3/uL (0.0-0.2); EOS # 0.4 10^3/uL (0.0-0.5); HEMATOCRIT 40.1 % (42.0-52.0); HEMOGLOBIN 13.8 g/dl (13.5-17.5); LYMPH % 32.4 % (24.0-44.0); MEAN CORPUSCULAR HEMOGLOBIN 33.8 pg (27.0-33.0); MEAN CORPUSCULAR HGB CONC 34.4 g/dl (32.0-36.5); MEAN CORPUSCULAR VOLUME 98.3 fl (80.0-96.0); MONO # 0.8 10^3/uL (0.0-0.8); MONO % 8.9 % (2.0-8.0); NEUTROPHILS # 4.9 10^3/uL (1.5-8.5); NEUTROPHILS % 53.4 % (36.0-66.0); PLATELET COUNT, AUTOMATED 221 10^3/uL (150-450); RED BLOOD COUNT 4.08 10^6/uL (4.30-6.10); WHITE BLOOD COUNT 9.2 10^3/uL (4.0-10.0)
[2023-02-26 21:34] LABS: BLOOD UREA NITROGEN 6 MG/DL (9-23); CALCIUM LEVEL 8.7 MG/DL (8.5-10.1); CARBON DIOXIDE LEVEL 26 MMOL/L (20-31); CHLORIDE LEVEL 110 MMOL/L (98-107); CREATININE FOR GFR 0.91 MG/DL (0.70-1.30); GLOMERULAR FILTRATION RATE > 60.0 (>56); GLUCOSE, FASTING 88 MG/DL (60-100); POTASSIUM SERUM 4.3 MMOL/L (3.5-5.1); SODIUM LEVEL 145 MMOL/L (136-145)
[2023-02-26 21:41] LABS: ETHYL ALCOHOL (ETHANOL) 0.294 % (0.000-0.010)
[2023-02-27] MEDS ORDERED: KETOROLAC 30 MG/ML 1ML VIAL IV ONE (01:00)
[2023-02-27 02:30] VITALS: TEMP 97.2
[2023-02-27 04:30] VITALS: BP 98/56
[2023-02-27 04:45] VITALS: O2SAT 97
== END 2023-02-27 05:01 | disposition home or self-care (01) ==
LOC: M ED 19:40 → EDBD 19:40 → M ED 02-27 05:01
DX: M25.552 Pain in left hip (principal); F10.129 Alcohol abuse with intoxication, unspecified; F31.9 Bipolar disorder, unspecified; W19.XXXA Unspecified fall, initial encounter; Y92.29 Other specified public building as the place of occurrence of the external cause; Z79.810 Long term (current) use of selective estrogen receptor modulators (SERMs); Z79.899 Other long term (current) drug therapy
CPT/HCPCS: 70450; 71045; 72125; 73502; 73552; 73590; 73630; 73700; 80048; 82077; 85025; 93041; 94760; 96374; 99285; J1885

== ENCOUNTER 2023-05-09 10:47 | Emergency (ER) | payer MEDICARE, MEDICAID ==
[~2023-05-09] VITALS: Ht 172.7 cm; Wt 67.7 kg
[~2023-05-09 10:47] MED LIST changes: -OXYB5TAB10 PO; +OXYB5TAB11 PO
[2023-05-09 11:01] VITALS: TEMP 98.8
[2023-05-09 12:01] VITALS: BP 110/67; O2SAT 97
[2023-05-09 13:00] LABS: BASO # 0.1 10^3/uL (0.0-0.2); BASO % 0.9 % (0.0-1.0); EOS # 0.2 10^3/uL (0.0-0.5); EOS % 2.8 % (0.0-3.0); HEMATOCRIT 42.9 % (42.0-52.0); HEMOGLOBIN 14.8 g/dl (13.5-17.5); LYMPH # 2.1 10^3/uL (1.5-5.0); LYMPH % 38.6 % (24.0-44.0); MEAN CORPUSCULAR HGB CONC 34.5 g/dl (32.0-36.5); MEAN CORPUSCULAR VOLUME 101.4 fl (80.0-96.0); MONO # 0.6 10^3/uL (0.0-0.8); MONO % 11.8 % (2.0-8.0); NEUTROPHILS # 2.5 10^3/uL (1.5-8.5); NEUTROPHILS % 45.7 % (36.0-66.0); PLATELET COUNT, AUTOMATED 309 10^3/uL (150-450); RED BLOOD COUNT 4.23 10^6/uL (4.30-6.10); WHITE BLOOD COUNT 5.4 10^3/uL (4.0-10.0)
[2023-05-09 13:24] LABS: CK-MB VALUE MASS 1.6 NG/ML (<3.6); LIPASE 209 U/L (12-53)
[2023-05-09 13:25] LABS: CPK CREATINE PHOSPHOKINASE 142 U/L (46-171); MB/CK RELATIVE INDEX 1.12 (< OR =4)
[2023-05-09 13:26] LABS: ALBUMIN 3.9 G/DL (3.2-5.2); ALKALINE PHOSPHATASE 53 U/L (46-116); ALT/SGPT 19 U/L (7.0-40); AST/SGOT 33 U/L (<34); BILIRUBIN,DIRECT 0.1 MG/DL (<0.4); BILIRUBIN,TOTAL 0.3 MG/DL (0.3-1.2); BLOOD UREA NITROGEN 10 MG/DL (9-23); CALCIUM LEVEL 8.9 MG/DL (8.5-10.1); CARBON DIOXIDE LEVEL 25 MMOL/L (20-31); CHLORIDE LEVEL 107 MMOL/L (98-107); CREATININE FOR GFR 0.89 MG/DL (0.70-1.30); GLOMERULAR FILTRATION RATE > 60.0 (>56); GLUCOSE, FASTING 97 MG/DL (60-100); POTASSIUM SERUM 4.1 MMOL/L (3.5-5.1); SODIUM LEVEL 143 MMOL/L (136-145); TOTAL PROTEIN 7.4 G/DL (5.7-8.2)
== END 2023-05-09 12:48 | disposition left against medical advice (07) ==
LOC: EDBD 10:47 → M ED 10:47
DX: F10.129 Alcohol abuse with intoxication, unspecified (principal); F31.9 Bipolar disorder, unspecified; M54.50 Low back pain, unspecified; Z79.810 Long term (current) use of selective estrogen receptor modulators (SERMs); Z79.899 Other long term (current) drug therapy; Z53.9 Procedure and treatment not carried out, unspecified reason

== ENCOUNTER 2023-05-09 19:52 | Emergency (ER) | payer MEDICARE, MEDICAID ==
[~2023-05-09] VITALS: Ht 172.7 cm; Wt 68.2 kg
[2023-05-09 20:30] VITALS: TEMP 97.8
[2023-05-09 20:40] LABS: BASO # 0.1 10^3/uL (0.0-0.2); EOS # 0.2 10^3/uL (0.0-0.5); EOS % 3.8 % (0.0-3.0); HEMOGLOBIN 14.6 g/dl (13.5-17.5); LYMPH # 2.8 10^3/uL (1.5-5.0); LYMPH % 47.4 % (24.0-44.0); MEAN CORPUSCULAR HEMOGLOBIN 34.8 pg (27.0-33.0); MEAN CORPUSCULAR HGB CONC 34.8 g/dl (32.0-36.5); MEAN CORPUSCULAR VOLUME 100.2 fl (80.0-96.0); MONO # 0.8 10^3/uL (0.0-0.8); MONO % 13.7 % (2.0-8.0); NEUTROPHILS % 33.9 % (36.0-66.0); PLATELET COUNT, AUTOMATED 293 10^3/uL (150-450); RED BLOOD COUNT 4.19 10^6/uL (4.30-6.10); WHITE BLOOD COUNT 5.8 10^3/uL (4.0-10.0)
[2023-05-09] MEDS ORDERED: ISOVUE-370 76% 100ML VIAL As Ordered ONE (21:00)
[2023-05-09 21:04] LABS: CK-MB VALUE MASS 1.4 NG/ML (<3.6)
[2023-05-09 21:05] LABS: ALBUMIN 3.8 G/DL (3.2-5.2); BILIRUBIN,DIRECT 0.1 MG/DL (<0.4); BILIRUBIN,TOTAL 0.3 MG/DL (0.3-1.2); MB/CK RELATIVE INDEX 0.77 (< OR =4); TOTAL PROTEIN 7.4 G/DL (5.7-8.2)
[2023-05-09 21:16] LABS: RSV AMPLIFICATION NEGATIVE (NEGATIVE)
[2023-05-09 22:00] VITALS: BP 119/70; O2SAT 98
== END 2023-05-09 22:48 | disposition home or self-care (01) ==
LOC: M ED 19:52
DX: R74.8 Abnormal levels of other serum enzymes (principal); R00.1 Bradycardia, unspecified; I44.4 Left anterior fascicular block; I45.10 Unspecified right bundle-branch block; F10.10 Alcohol abuse, uncomplicated; F31.9 Bipolar disorder, unspecified; Z79.810 Long term (current) use of selective estrogen receptor modulators (SERMs); Z79.899 Other long term (current) drug therapy
CPT/HCPCS: 36415; 70450; 71260; 72125; 74177; 80047; 80048; 80076; 82550; 82553; 83690; 84484; 85025; 87631; 93005; 93041; 99284; Q9967

== ENCOUNTER 2023-06-11 19:12 | Emergency (ER) | payer MEDICARE, MEDICAID ==
[~2023-06-11] VITALS: Ht 172.7 cm; Wt 68.0 kg
[2023-06-11 19:54] LABS: BASO # 0.1 10^3/uL (0.0-0.2); BASO % 1.2 % (0.0-1.0); EOS # 0.2 10^3/uL (0.0-0.5); EOS % 2.8 % (0.0-3.0); HEMATOCRIT 40.3 % (42.0-52.0); HEMOGLOBIN 14.3 g/dl (13.5-17.5); LYMPH % 39.9 % (24.0-44.0); MEAN CORPUSCULAR HEMOGLOBIN 35.3 pg (27.0-33.0); MEAN CORPUSCULAR HGB CONC 35.5 g/dl (32.0-36.5); MEAN CORPUSCULAR VOLUME 99.5 fl (80.0-96.0); MONO # 0.6 10^3/uL (0.0-0.8); MONO % 8.2 % (2.0-8.0); NEUTROPHILS # 3.6 10^3/uL (1.5-8.5); NEUTROPHILS % 47.8 % (36.0-66.0); PLATELET COUNT, AUTOMATED 293 10^3/uL (150-450); RED BLOOD COUNT 4.05 10^6/uL (4.30-6.10); WHITE BLOOD COUNT 7.5 10^3/uL (4.0-10.0)
[2023-06-11 20:07] LABS: CK-MB VALUE MASS < 1.0 NG/ML (<3.6); INR 1.09; LIPASE 34 U/L (12-53); PROTHROMBIN TIME 13.8 SECONDS (12.5-14.5)
[2023-06-11 20:09] LABS: ALBUMIN 3.3 G/DL (3.2-5.2); ALKALINE PHOSPHATASE 57 U/L (46-116); ALT/SGPT 19 U/L (7.0-40); AST/SGOT 31 U/L (<34); BILIRUBIN,DIRECT 0.1 MG/DL (<0.4); BILIRUBIN,TOTAL 0.2 MG/DL (0.3-1.2); BLOOD UREA NITROGEN 9 MG/DL (9-23); CALCIUM LEVEL 8.5 MG/DL (8.5-10.1); CARBON DIOXIDE LEVEL 26 MMOL/L (20-31); CHLORIDE LEVEL 109 MMOL/L (98-107); CREATININE FOR GFR 0.68 MG/DL (0.70-1.30); GLOMERULAR FILTRATION RATE > 60.0 (>56); GLUCOSE, FASTING 111 MG/DL (60-100); POTASSIUM SERUM 3.8 MMOL/L (3.5-5.1); SODIUM LEVEL 146 MMOL/L (136-145); TOTAL PROTEIN 6.5 G/DL (5.7-8.2)
[2023-06-11 20:10] LABS: CPK CREATINE PHOSPHOKINASE 105 U/L (46-171); MB/CK RELATIVE INDEX 0.95 (< OR =4)
[2023-06-11 20:27] LABS: ETHYL ALCOHOL (ETHANOL) 0.282 % (0.000-0.010)
[2023-06-11] MEDS ORDERED: NS 2,040 ML in IV 1 EA IV ONE (20:40)
[2023-06-11] MEDS ORDERED: ONDANSETRON 4MG 2ML VIAL IV ONE (20:40)
[2023-06-11] MEDS: MORPHINE 4 MG/ML 1ML VIAL IV PRN ×2 (21:11→22:34)
[2023-06-11] MEDS ORDERED: ISOVUE-370 76% 100ML VIAL As Ordered ONE (21:46)
[2023-06-11 21:55] LABS: CK-MB VALUE MASS < 1.0 NG/ML (<3.6)
[2023-06-11 21:58] LABS: CPK CREATINE PHOSPHOKINASE 99 U/L (46-171); MB/CK RELATIVE INDEX 1.01 (< OR =4)
[2023-06-11] MEDS ORDERED: MAALOX 30 ML SUSP *UDC PO ONE (22:30)
[2023-06-11] MEDS ORDERED: PANTOPRAZOLE 40MG VIAL IV ONE (22:30)
[2023-06-12] MEDS ORDERED: SUCRALFATE 1 GM TAB PO ONE (02:15)
[2023-06-12] MEDS ORDERED: FAMOTIDINE 20 MG TAB PO ONE (02:15)
[2023-06-12] MEDS ORDERED: OMEP40CA4 PO (02:17)
[2023-06-12] MEDS ORDERED: PEPC1TAB5 PO (02:17)
[2023-06-12] MEDS ORDERED: CARA1TAB6 PO (02:17)
[2023-06-12 02:42] VITALS: BP 137/82; TEMP 98.1; O2SAT 97
== END 2023-06-12 02:46 | disposition home or self-care (01) ==
LOC: EDBD 19:12 → M ED 19:12
DX: K29.70 Gastritis, unspecified, without bleeding (principal); I45.10 Unspecified right bundle-branch block; F17.200 Nicotine dependence, unspecified, uncomplicated; F10.10 Alcohol abuse, uncomplicated; Z79.810 Long term (current) use of selective estrogen receptor modulators (SERMs); Z79.899 Other long term (current) drug therapy
CPT/HCPCS: 71045; 71275; 74177; 80048; 80076; 82077; 82550; 82553; 83605; 83690; 84484; 85025; 85610; 85730; 87486; 87581; 87633; 87798; 93005; 93041; 96361; 96374; 96375; 96376; 99284; C9113; J2405; Q9967

== ENCOUNTER 2023-12-12 18:03 | Inpatient (IN) | payer MEDICARE, MEDICAID ==
[~2023-12-12] VITALS: Ht 175.3 cm; Wt 68.8 kg
[~2023-12-12 18:03] MED LIST changes: +CARA1TAB6 PO; +OMEP40CA4 PO; -OXYB5TAB11 PO; +OXYB5TAB14 PO; +PEPC1TAB5 PO
[2023-12-12 19:07] LABS: HEMATOCRIT 41.4 % (42.0-52.0); HEMOGLOBIN 14.8 g/dl (13.5-17.5); MEAN CORPUSCULAR HGB CONC 35.7 g/dl (32.0-36.5); MEAN CORPUSCULAR VOLUME 97.9 fl (80.0-96.0); PLATELET COUNT, AUTOMATED 223 10^3/uL (150-450); RED BLOOD COUNT 4.23 10^6/uL (4.30-6.10); WHITE BLOOD COUNT 6.1 10^3/uL (4.0-10.0)
[2023-12-12 19:29] LABS: ETHYL ALCOHOL (ETHANOL) 0.293 % (0.000-0.010)
[2023-12-12 19:30] LABS: SALICYLATE LEVEL < 3.0 MG/DL (<30)
[2023-12-12 19:31] LABS: ALBUMIN 3.7 G/DL (3.2-5.2); ALKALINE PHOSPHATASE 60 U/L (46-116); ALT/SGPT 42 U/L (7.0-40); AST/SGOT 74 U/L (<34); BILIRUBIN,DIRECT 0.1 MG/DL (<0.4); BILIRUBIN,TOTAL 0.3 MG/DL (0.3-1.2); BLOOD UREA NITROGEN 9 MG/DL (9-23); CALCIUM LEVEL 8.7 MG/DL (8.5-10.1); CARBON DIOXIDE LEVEL 27 MMOL/L (20-31); CHLORIDE LEVEL 108 MMOL/L (98-107); CREATININE FOR GFR 0.83 MG/DL (0.70-1.30); GLOMERULAR FILTRATION RATE > 60.0 (>56); GLUCOSE, FASTING 87 MG/DL (60-100); SODIUM LEVEL 145 MMOL/L (136-145); TOTAL PROTEIN 7.2 G/DL (5.7-8.2)
[2023-12-12 19:33] LABS: THYROID STIMULATING HORMONE 4.056 uIU/ML (0.55-4.78)
[2023-12-12] MEDS: LORazepam 2 MG TAB PO STA (20:00)
[2023-12-12 20:04] LABS: AMPHETAMINES LEVEL URINE NEGATIVE (NEGATIVE); BARBITURATES URINE NEGATIVE (NEGATIVE); BENZODIAZEPINES URINE NEGATIVE (NEGATIVE); COCAINE METABOLITE URINE NEGATIVE (NEGATIVE); METHADONE URINE NEGATIVE (NEGATIVE); OPIATES URINE NEGATIVE (NEGATIVE); PHENCYCLIDINE URINE NEGATIVE (NEGATIVE)
[2023-12-12 20:06] LABS: CANNABINOIDS URINE POSITIVE (NEGATIVE)
[2023-12-13] MEDS ORDERED: MOM 30ML SUSPENSION UDC PO PRN (06:40)
[2023-12-13] MEDS ORDERED: NICOTINE 21MG/24HR 1 EA TRANSDERMAL TD PRN (06:40)
[2023-12-13] MEDS ORDERED: MAALOX 30 ML SUSP *UDC PO PRN (06:40)
[2023-12-13] MEDS ORDERED: IBUPROFEN 400MG TAB PO PRN (06:40)
[2023-12-13] MEDS ORDERED: LORazepam 2 MG TAB PO PRN (06:40)
[2023-12-13] MEDS ORDERED: FAMO20TA PO (06:46)
[2023-12-13] MEDS ORDERED: SUCR1TAB56 PO (06:46)
[2023-12-13] MEDS ORDERED: OMEP40CA5 PO (06:46)
[2023-12-13] MEDS ORDERED: ERGO500029 PO (06:46)
[2023-12-13] MEDS ORDERED: OLAN1TAB16 PO (06:46)
[2023-12-13] MEDS ORDERED: MULT-40 PO (06:46)
[2023-12-13] MEDS ORDERED: HYDR-3363 PO (06:46)
[2023-12-13] MEDS ORDERED: HOME MED LIST COMPLETE! XX SCH (06:50)
[2023-12-13] MEDS: MULTIVITAMINS/MINERALS THERAP 1 TAB PO SCH (08:54)
[2023-12-13] MEDS: THIAMINE 100 MG TAB PO SCH (08:54)
[2023-12-13] MEDS: FOLIC ACID 1MG TAB PO SCH (08:54)
[2023-12-13 11:49] VITALS: BP 134/83; TEMP 97.8; O2SAT 97
[2023-12-13 12:04] VITALS: BP 134/83
[2023-12-13 18:48] VITALS: BP 148/84; TEMP 99.1; O2SAT 98
[2023-12-13] MEDS: diphenhydrAMINE 25MG CAP PO PRN (21:58)
[2023-12-13] MEDS: traZODone 50 MG TAB PO PRN (21:58)
[2023-12-13 22:02] VITALS: BP 142/84
[2023-12-14 05:48] VITALS: BP 133/85
[2023-12-14 05:49] VITALS: BP 133/85; TEMP 98; O2SAT 98
[2023-12-14 08:00] VITALS: BP 133/78
[2023-12-14] MEDS: OLANZapine 5 MG TAB PO SCH (10:39)
[2023-12-14 14:00] VITALS: BP 138/78
[2023-12-14 15:05] VITALS: BP 138/78; TEMP 98; O2SAT 99
[2023-12-14] MEDS: ASPIRIN 81MG ENTERIC TABLET PO SCH (18:33)
[2023-12-14 22:00] VITALS: BP 142/92
[2023-12-15 06:12] VITALS: BP 138/90; TEMP 97.6; O2SAT 98
[2023-12-15] MEDS: amLODIPine 5 MG TAB PO SCH (08:15)
[2023-12-15 08:31] LABS: CHOLESTEROL RISK RATIO 2.1 (<5); HDL CHOLESTEROL 71.7 MG/DL (>40); LDL CHOLESTEROL 64.5 MG/DL (<100); NON-HDL-C 79.3 MG/DL
[2023-12-15] MEDS: ACETAMINOPHEN TAB 650MG DOSE (2X325MG) PO PRN (14:35)
[2023-12-15 18:00] VITALS: BP 127/81; TEMP 97.2; O2SAT 99
[2023-12-15] MEDS: OLANZapine ORAL DISINTEGRATING TAB 5MG PO SCH (19:51)
[2023-12-16 06:21] VITALS: BP 151/93; TEMP 97.7; O2SAT 99
[2023-12-16 06:33] VITALS: BP 134/82
[2023-12-16 18:00] VITALS: BP 139/74; TEMP 97.6; O2SAT 98
[2023-12-16 20:02] VITALS: BP 120/75
[2023-12-16] MEDS: PRAZOSIN 1 MG CAP PO SCH (20:04)
[2023-12-16] MEDS: traZODone 100 MG TAB PO PRN (20:04)
[2023-12-17 06:11] VITALS: BP 141/81; TEMP 98.1; O2SAT 99
[2023-12-17 08:04] VITALS: BP 119/70
[2023-12-17 08:05] VITALS: BP 119/70
[2023-12-17] MEDS ORDERED: PRAZ1CAP PO (08:44)
[2023-12-17] MEDS ORDERED: ASPI81TAEC PO (08:44)
[2023-12-17] MEDS ORDERED: TRAZ-257 PO (08:44)
[2023-12-17] MEDS ORDERED: NICO21PAT TD (08:44)
[2023-12-17] MEDS ORDERED: AMLO1TAB24 PO (08:44)
[2023-12-17] MEDS ORDERED: OLAN1TAB16 PO (08:44)
== END 2023-12-17 12:30 | disposition home or self-care (01) | DRG 885 ==
LOC: M ED 18:03 → M ED INP 12-13 06:36 → M PSY 12-13 11:43
PROVIDERS: ADMIT Psychiatry & Neurology Psychiatry; ATTEND Student in an Organized Health Care Education/Training Program
DX: F31.9 Bipolar disorder, unspecified (principal); F17.200 Nicotine dependence, unspecified, uncomplicated; F12.90 Cannabis use, unspecified, uncomplicated; F10.10 Alcohol abuse, uncomplicated; Z63.5 Disruption of family by separation and divorce; Z79.899 Other long term (current) drug therapy; Z79.82 Long term (current) use of aspirin; I10 Essential (primary) hypertension; R00.1 Bradycardia, unspecified

== ENCOUNTER 2024-06-03 18:23 | Inpatient (IN) | payer MEDICARE, MEDICAID ==
[~2024-06-03] VITALS: Ht 172.7 cm; Wt 63.6 kg
[~2024-06-03 18:23] MED LIST changes: +AMLO1TAB24 PO; +ASPI81TAEC PO; +ERGO500029 PO; +FAMO20TA PO; +HYDR-3363 PO; +MULT-40 PO; +OMEP40CA5 PO; +PRAZ1CAP PO; +SUCR1TAB56 PO; +TRAZ-257 PO
[2024-06-03 19:12] LABS: MEAN CORPUSCULAR HEMOGLOBIN 34.2 pg (27.0-33.0); MEAN CORPUSCULAR HGB CONC 34.9 g/dl (32.0-36.5); MEAN CORPUSCULAR VOLUME 97.9 fl (80.0-96.0); PLATELET COUNT, AUTOMATED 313 10^3/uL (150-450); RED BLOOD COUNT 4.39 10^6/uL (4.30-6.10); WHITE BLOOD COUNT 8.6 10^3/uL (4.0-10.0)
[2024-06-03 19:30] LABS: AMPHETAMINES LEVEL URINE NEGATIVE (NEGATIVE); BARBITURATES URINE NEGATIVE (NEGATIVE); BENZODIAZEPINES URINE NEGATIVE (NEGATIVE); COCAINE METABOLITE URINE NEGATIVE (NEGATIVE); METHADONE URINE NEGATIVE (NEGATIVE); OPIATES URINE NEGATIVE (NEGATIVE); PHENCYCLIDINE URINE NEGATIVE (NEGATIVE)
[2024-06-03 19:34] LABS: ALBUMIN 3.7 G/DL (3.2-5.2); ALKALINE PHOSPHATASE 58 U/L (40-129); ALT/SGPT 12 U/L (7.0-40); AST/SGOT 24 U/L (<34); BILIRUBIN,DIRECT < 0.1 MG/DL (<0.4); BILIRUBIN,TOTAL 0.3 MG/DL (0.3-1.2); BLOOD UREA NITROGEN 8 MG/DL (9-23); CALCIUM LEVEL 9.3 MG/DL (8.5-10.1); CANNABINOIDS URINE POSITIVE (NEGATIVE); CARBON DIOXIDE LEVEL 24 MMOL/L (20-31); CHLORIDE LEVEL 101 MMOL/L (98-107); CREATININE FOR GFR 0.79 MG/DL (0.70-1.30); GLOMERULAR FILTRATION RATE > 60.0 (>56); GLUCOSE, FASTING 92 MG/DL (60-100); POTASSIUM SERUM 3.9 MMOL/L (3.5-5.1); SALICYLATE LEVEL < 3.0 MG/DL (<30); SODIUM LEVEL 139 MMOL/L (136-145); TOTAL PROTEIN 7.5 G/DL (5.7-8.2)
[2024-06-03 19:37] LABS: THYROID STIMULATING HORMONE 3.253 uIU/ML (0.55-4.78)
[2024-06-03 19:53] LABS: ETHYL ALCOHOL (ETHANOL) 0.356 % (0.000-0.010)
[2024-06-04] MEDS ORDERED: LORazepam 2 MG TAB PO PRN (09:50)
[2024-06-04] MEDS ORDERED: MAALOX 30 ML SUSP *UDC PO PRN (09:50)
[2024-06-04] MEDS ORDERED: MOM 30ML SUSPENSION UDC PO PRN (09:50)
[2024-06-04] MEDS ORDERED: TRAZ-257 PO (10:46)
[2024-06-04] MEDS ORDERED: OLAN1TAB16 PO (10:46)
[2024-06-04] MEDS ORDERED: ASPI81TA26 PO (10:46)
[2024-06-04] MEDS ORDERED: FLUO1TAB3 PO (10:46)
[2024-06-04] MEDS ORDERED: AMLO1TAB24 PO (10:46)
[2024-06-04] MEDS ORDERED: HOME MED LIST COMPLETE! XX SCH (10:50)
[2024-06-04] MEDS: MULTIVITAMINS/MINERALS THERAP 1 TAB PO SCH (12:04)
[2024-06-04] MEDS: THIAMINE 100 MG TAB PO SCH (12:05)
[2024-06-04] MEDS: FOLIC ACID 1MG TAB PO SCH (12:05)
[2024-06-04 14:41] VITALS: BP 156/92; TEMP 98.4; O2SAT 98
[2024-06-04] MEDS: diphenhydrAMINE 25MG CAP PO PRN (20:22)
[2024-06-04] MEDS: traZODone 50 MG TAB PO PRN (20:22)
[2024-06-05 06:30] VITALS: BP 144/80; TEMP 98; O2SAT 98
[2024-06-05] MEDS: NICOTINE 14 MG/24 HR TRANSDERMAL TD SCH (09:00)
[2024-06-05] MEDS: OMEPRAZOLE 20MG CAP PO SCH (09:00)
[2024-06-05] MEDS: FLUoxetine 20MG CAP PO SCH (09:14)
[2024-06-05] MEDS: ASPIRIN 81MG ENTERIC TABLET PO SCH (09:14)
[2024-06-05] MEDS: OLANZapine 5 MG TAB PO SCH (09:14)
[2024-06-05] MEDS: FAMOTIDINE 20 MG TAB PO SCH (09:14)
[2024-06-05 09:15] VITALS: BP 142/72
[2024-06-05] MEDS: amLODIPine 5 MG TAB PO SCH (09:26)
[2024-06-05] MEDS: VITAMIN D 50,000 UNITS CAPSULE (ERGOCALCIFEROL 1.25MG) PO SCH (12:22)
[2024-06-05 14:00] VITALS: BP 148/80
[2024-06-05 17:06] VITALS: BP 126/72; TEMP 96.9; O2SAT 99
[2024-06-05 20:36] VITALS: BP 127/59
[2024-06-06 06:25] VITALS: BP 114/70; TEMP 97.8; O2SAT 97
[2024-06-06 08:49] VITALS: BP 129/91
[2024-06-06 14:00] VITALS: BP 129/91
[2024-06-06 15:08] VITALS: BP 132/64; TEMP 98.2; O2SAT 99
[2024-06-06] MEDS: traZODone 100 MG TAB PO PRN (20:07)
[2024-06-07 06:23] VITALS: BP 119/69; TEMP 97.5; O2SAT 99
[2024-06-07] MEDS: IBUPROFEN 400MG TAB PO PRN (12:22)
[2024-06-07 15:28] VITALS: BP 110/65; TEMP 98.3; O2SAT 100
[2024-06-07] MEDS: ACETAMINOPHEN 325 MG TAB PO PRN (20:17)
[2024-06-08 06:13] VITALS: BP_SYST 126; BP_SYST 141; BP_DIAS 61; BP_DIAS 88; TEMP 96.1; TEMP 97.7; O2SAT 97
[2024-06-08 15:06] VITALS: BP 122/68; TEMP 98.1; O2SAT 98
[2024-06-09 06:16] VITALS: BP 136/80; TEMP 97.8; O2SAT 95
[2024-06-09 08:29] VITALS: BP 144/95
[2024-06-09] MEDS ORDERED: TRAZ-257 PO (08:39)
[2024-06-09] MEDS ORDERED: NICO14PA TD (08:39)
[2024-06-09] MEDS ORDERED: ASPI81TA26 PO (08:39)
[2024-06-09] MEDS ORDERED: FOLI1TAB11 PO (08:39)
[2024-06-09] MEDS ORDERED: Multivitamins PO (08:39)
[2024-06-09] MEDS ORDERED: FLUO1TAB3 PO (08:39)
[2024-06-09] MEDS ORDERED: ERGO500029 PO (08:39)
[2024-06-09] MEDS ORDERED: OLAN1TAB16 PO (08:39)
[2024-06-09] MEDS ORDERED: FAMO20TA PO (08:39)
[2024-06-09] MEDS ORDERED: OMEP40CA5 PO (08:39)
[2024-06-09] MEDS ORDERED: HYDR-3363 PO (08:39)
[2024-06-09] MEDS ORDERED: AMLO1TAB24 PO (08:39)
== END 2024-06-09 13:55 | disposition home or self-care (01) | DRG 885 ==
LOC: M ED 18:23 → EDBD 18:23 → M ED INP 06-04 09:46 → M PSY 06-04 10:48
PROVIDERS: ADMIT Psychiatry & Neurology Psychiatry; ATTEND Psychiatry & Neurology Psychiatry
DX: F31.9 Bipolar disorder, unspecified (principal); R45.851 Suicidal ideations; F17.210 Nicotine dependence, cigarettes, uncomplicated; F12.90 Cannabis use, unspecified, uncomplicated; F10.10 Alcohol abuse, uncomplicated; Z91.148 Patient's other noncompliance with medication regimen for other reason; Z79.899 Other long term (current) drug therapy; Z79.82 Long term (current) use of aspirin; R29.6 Repeated falls; K21.9 Gastro-esophageal reflux disease without esophagitis

== ENCOUNTER 2024-10-11 18:30 | Emergency (ER) | payer MEDICARE, MEDICAID ==
[~2024-10-11] VITALS: Ht 172.7 cm; Wt 69.7 kg
[~2024-10-11 18:30] MED LIST changes: +ASPI81TA26 PO; +FLUO1TAB3 PO; +Multivitamins PO; +NICO14PA TD
[2024-10-11 19:13] LABS: HEMATOCRIT 42.3 % (42.0-52.0); MEAN CORPUSCULAR HGB CONC 35.5 g/dl (32.0-36.5); MEAN CORPUSCULAR VOLUME 98.6 fl (80.0-96.0); PLATELET COUNT, AUTOMATED 301 10^3/uL (150-450); RED BLOOD COUNT 4.29 10^6/uL (4.30-6.10); WHITE BLOOD COUNT 9.5 10^3/uL (4.0-10.0)
[2024-10-11 19:35] LABS: AMPHETAMINES LEVEL URINE NEGATIVE (NEGATIVE); BARBITURATES URINE NEGATIVE (NEGATIVE); BENZODIAZEPINES URINE NEGATIVE (NEGATIVE); COCAINE METABOLITE URINE NEGATIVE (NEGATIVE); METHADONE URINE NEGATIVE (NEGATIVE); OPIATES URINE NEGATIVE (NEGATIVE); PHENCYCLIDINE URINE NEGATIVE (NEGATIVE)
[2024-10-11 19:36] LABS: CANNABINOIDS URINE POSITIVE (NEGATIVE)
[2024-10-11 19:39] LABS: ALBUMIN 3.8 G/DL (3.2-5.2); ALKALINE PHOSPHATASE 55 U/L (40-129); ALT/SGPT 45 U/L (7.0-40); AST/SGOT 85 U/L (<34); BILIRUBIN,DIRECT 0.1 MG/DL (<0.4); BILIRUBIN,TOTAL 0.3 MG/DL (0.3-1.2); BLOOD UREA NITROGEN 7 MG/DL (9-23); CALCIUM LEVEL 8.7 MG/DL (8.5-10.1); CARBON DIOXIDE LEVEL 25 MMOL/L (20-31); CHLORIDE LEVEL 102 MMOL/L (98-107); CREATININE FOR GFR 0.67 MG/DL (0.70-1.30); GLOMERULAR FILTRATION RATE > 60.0 (>56); GLUCOSE, FASTING 91 MG/DL (60-100); POTASSIUM SERUM 4.4 MMOL/L (3.5-5.1); SALICYLATE LEVEL < 3.0 MG/DL (<30); SODIUM LEVEL 138 MMOL/L (136-145); TOTAL PROTEIN 7.6 G/DL (5.7-8.2)
[2024-10-11 19:41] LABS: THYROID STIMULATING HORMONE 4.167 uIU/ML (0.55-4.78)
[2024-10-11] MEDS: KETOROLAC 60MG 2ML VIAL IM ONE (20:03)
[2024-10-11] MEDS ORDERED: LORazepam 2 MG TAB PO PRN (20:30)
[2024-10-11] MEDS: THIAMINE 100 MG TAB PO SCH (20:57)
[2024-10-12] MEDS: FOLIC ACID 1MG TAB PO SCH ×2 (09:00→12:01)
[2024-10-12] MEDS: MULTIVITAMINS/MINERALS THERAP 1 TAB PO SCH (09:00)
[2024-10-12] MEDS ORDERED: FLUO-365 PO (10:13)
[2024-10-12] MEDS ORDERED: HYDR-643 PO (10:13)
[2024-10-12] MEDS ORDERED: HOME MED LIST COMPLETE! XX SCH (10:20)
[2024-10-12] MEDS ORDERED: traZODone 100 MG TAB PO PRN (10:45)
[2024-10-12] MEDS: FLUoxetine 20MG CAP PO SCH (12:00)
[2024-10-12] MEDS: OMEPRAZOLE 20MG CAP PO SCH (12:00)
[2024-10-12] MEDS: OLANZapine 5 MG TAB PO SCH (12:01)
[2024-10-12] MEDS: amLODIPine 5 MG TAB PO SCH (12:01)
[2024-10-12 13:13] LABS: APPEARANCE, URINE CLEAR (CLEAR); BACTERIA, URINE AUTO NEGATIVE (NEGATIVE); BILIRUBIN, URINE AUTO NEGATIVE (NEGATIVE); BLOOD, URINE BLOOD NEGATIVE (NEGATIVE); COLOR, URINE STRAW (YELLOW); GLUCOSE, URINE (UA) AUTO NEGATIVE (NEGATIVE); KETONE, URINE AUTO NEGATIVE (NEGATIVE); LEUKOCYTE ESTERASE, URINE AUTO NEGATIVE (NEGATIVE); NITRITE, URINE AUTO NEGATIVE (NEGATIVE); PROTEIN, URINE AUTO NEGATIVE (NEGATIVE); RBC, URINE AUTO 0 /HPF (0-3); SPECIFIC GRAVITY URINE AUTO 1.002 (1.002-1.035); SQUAMOUS EPITHELIAL CELL UR AU 0 /HPF (0-6); UROBILINOGEN, URINE AUTO 0.2 mg/dL (0.0-2.0); WBC, URINE AUTO 0 /HPF (0-3)
[2024-10-13 08:56] VITALS: BP 151/87
[2024-10-13 10:18] VITALS: BP 133/74; TEMP 98.4; O2SAT 97
[2024-10-13] MEDS ORDERED: TRAZ-186 PO (17:21)
[2024-10-13] MEDS ORDERED: OLAN1TAB16 PO (17:21)
[2024-10-13] MEDS ORDERED: FLUO-365 PO (17:21)
[2024-10-13] MEDS ORDERED: HYDR-643 PO (17:21)
== END 2024-10-13 10:22 | disposition home or self-care (01) ==
LOC: M ED 18:30
DX: F31.9 Bipolar disorder, unspecified (principal); F32.A Depression, unspecified; F17.200 Nicotine dependence, unspecified, uncomplicated; F12.10 Cannabis abuse, uncomplicated; F10.10 Alcohol abuse, uncomplicated; Z79.899 Other long term (current) drug therapy
CPT/HCPCS: 80048; 80076; 80143; 80307; 81001; 82077; 84443; 85027; 87635; 93005; 96372; 99284; J1885

== ENCOUNTER 2024-11-03 22:43 | Inpatient (IN) | payer MEDICARE, MEDICAID ==
[~2024-11-03] VITALS: Ht 175.3 cm; Wt 68.0 kg
[2024-11-03] MEDS: THIAMINE 100 MG TAB PO SCH (21:00)
[~2024-11-03 22:43] MED LIST changes: +FLUO-365 PO; +HYDR-643 PO; +TRAZ-186 PO
[2024-11-03 23:17] LABS: HEMATOCRIT 39.2 % (42.0-52.0); HEMOGLOBIN 13.8 g/dl (13.5-17.5); MEAN CORPUSCULAR HEMOGLOBIN 35.4 pg (27.0-33.0); MEAN CORPUSCULAR HGB CONC 35.2 g/dl (32.0-36.5); MEAN CORPUSCULAR VOLUME 100.5 fl (80.0-96.0); PLATELET COUNT, AUTOMATED 214 10^3/uL (150-450); WHITE BLOOD COUNT 6.1 10^3/uL (4.0-10.0)
[2024-11-03 23:37] LABS: AMPHETAMINES LEVEL URINE NEGATIVE (NEGATIVE); BARBITURATES URINE NEGATIVE (NEGATIVE); BENZODIAZEPINES URINE NEGATIVE (NEGATIVE); COCAINE METABOLITE URINE NEGATIVE (NEGATIVE); METHADONE URINE NEGATIVE (NEGATIVE); OPIATES URINE NEGATIVE (NEGATIVE); PHENCYCLIDINE URINE NEGATIVE (NEGATIVE)
[2024-11-03 23:40] LABS: SALICYLATE LEVEL < 3.0 MG/DL (<30)
[2024-11-03 23:41] LABS: ALBUMIN 3.7 G/DL (3.2-5.2); ALKALINE PHOSPHATASE 60 U/L (40-129); ALT/SGPT 29 U/L (7.0-40); AST/SGOT 32 U/L (<34); BILIRUBIN,DIRECT 0.1 MG/DL (<0.4); BILIRUBIN,TOTAL 0.3 MG/DL (0.3-1.2); BLOOD UREA NITROGEN 7 MG/DL (9-23); CALCIUM LEVEL 8.5 MG/DL (8.5-10.1); CARBON DIOXIDE LEVEL 26 MMOL/L (20-31); CHLORIDE LEVEL 105 MMOL/L (98-107); CREATININE FOR GFR 0.85 MG/DL (0.70-1.30); GLOMERULAR FILTRATION RATE > 90.0 (>56); GLUCOSE, FASTING 90 MG/DL (60-100); POTASSIUM SERUM 3.7 MMOL/L (3.5-5.1); SODIUM LEVEL 140 MMOL/L (136-145); TOTAL PROTEIN 7.4 G/DL (5.7-8.2)
[2024-11-03 23:43] LABS: THYROID STIMULATING HORMONE 5.427 uIU/ML (0.55-4.78)
[2024-11-03 23:44] LABS: CANNABINOIDS URINE POSITIVE (NEGATIVE)
[2024-11-04 00:02] LABS: ETHYL ALCOHOL (ETHANOL) 0.324 % (0.000-0.010)
[2024-11-04] MEDS ORDERED: LORazepam 2 MG TAB PO PRN ×2 (02:35→12:25)
[2024-11-04] MEDS ORDERED: OLAN1TAB16 PO (08:49)
[2024-11-04] MEDS ORDERED: HOME MED LIST COMPLETE! XX SCH (08:50)
[2024-11-04] MEDS ORDERED: traZODone 50 MG TAB PO PRN (08:55)
[2024-11-04] MEDS: OMEPRAZOLE 20MG CAP PO ONE (09:41)
[2024-11-04] MEDS: amLODIPine 5 MG TAB PO SCH (09:42)
[2024-11-04] MEDS: FLUoxetine 20MG CAP PO SCH (09:42)
[2024-11-04] MEDS: MULTIVITAMINS/MINERALS THERAP 1 TAB PO SCH (09:42)
[2024-11-04] MEDS: FOLIC ACID 1MG TAB PO SCH ×2 (09:42→09:44)
[2024-11-04] MEDS ORDERED: MOM 30ML SUSPENSION UDC PO PRN (12:25)
[2024-11-04] MEDS ORDERED: OLANZapine 5 MG TAB PO PRN (12:25)
[2024-11-04] MEDS ORDERED: MAALOX 30 ML SUSP *UDC PO PRN (12:25)
[2024-11-04] MEDS: NICOTINE 14 MG/24 HR TRANSDERMAL TD SCH (13:11)
[2024-11-04 13:37] VITALS: BP 140/80
[2024-11-04 13:57] VITALS: BP 140/80; TEMP 97.7; O2SAT 97
[2024-11-04] MEDS: ACETAMINOPHEN 325 MG TAB PO PRN (15:52)
[2024-11-04 16:07] VITALS: BP 128/92; TEMP 97.6; O2SAT 98
[2024-11-04] MEDS: diphenhydrAMINE 25MG CAP PO PRN (20:29)
[2024-11-04] MEDS: traZODone 50 MG TAB PO PRN (20:29)
[2024-11-04] MEDS: THIAMINE 100 MG TAB PO SCH (20:30)
[2024-11-04] MEDS ORDERED: OLANZapine 5 MG TAB PO SCH (21:00)
[2024-11-05 06:42] VITALS: BP 132/70; TEMP 97.8; O2SAT 96
[2024-11-05 06:50] VITALS: BP 132/70
[2024-11-05] MEDS: FOLIC ACID 1MG TAB PO SCH (08:40)
[2024-11-05] MEDS: MULTIVITAMINS/MINERALS THERAP 1 TAB PO SCH (08:40)
[2024-11-05] MEDS ORDERED: VITAMIN D 50,000 UNITS CAPSULE (ERGOCALCIFEROL 1.25MG) PO SCH ×2 (09:00)
[2024-11-05] MEDS: FLUoxetine 20MG CAP PO SCH (14:09)
[2024-11-05 15:00] VITALS: BP_SYST 129; BP_SYST 132; BP_DIAS 70; BP_DIAS 84
[2024-11-05 15:42] VITALS: BP 129/84; TEMP 97.3; O2SAT 96
[2024-11-05] MEDS: OLANZapine 10 MG TAB PO SCH (20:21)
[2024-11-05] MEDS: NALTREXONE 50 MG TAB PO SCH (20:21)
[2024-11-06 06:40] VITALS: BP 126/86
[2024-11-06 06:47] VITALS: BP 128/86; TEMP 97.8; O2SAT 97
[2024-11-06 14:01] VITALS: BP 131/84
[2024-11-06 15:11] VITALS: BP 136/87; TEMP 97.4; O2SAT 99
[2024-11-07 06:36] VITALS: BP 133/76; TEMP 96.9; O2SAT 97
[2024-11-07 08:47] VITALS: BP 137/81
[2024-11-07 09:30] VITALS: BP 137/81; TEMP 97.2; O2SAT 98
[2024-11-07 14:21] VITALS: BP 141/78
[2024-11-07 15:00] VITALS: BP 132/72; TEMP 98; O2SAT 98
[2024-11-08 06:36] VITALS: BP 145/86; TEMP 97.1; O2SAT 99
[2024-11-08 14:45] VITALS: BP 121/80; TEMP 97.5; O2SAT 99
[2024-11-09 06:55] VITALS: BP 150/87; TEMP 96.9; O2SAT 98
[2024-11-09 16:09] VITALS: BP 126/79; TEMP 97.9; O2SAT 99
[2024-11-10] MEDS ORDERED: OLAN1TAB20 PO (00:01)
[2024-11-10] MEDS ORDERED: HYDR-4570 PO (00:01)
[2024-11-10] MEDS ORDERED: FLUO-365 PO (00:01)
[2024-11-10] MEDS ORDERED: TRAZ-252 PO (00:01)
[2024-11-10] MEDS ORDERED: NALT50TA4 PO (00:01)
[2024-11-10 06:42] VITALS: BP 147/84; TEMP 97.5; O2SAT 100
== END 2024-11-10 11:41 | disposition home or self-care (01) | DRG 885 ==
LOC: M ED 22:43 → M ED INP 11-04 12:24 → M PSY 11-04 14:36
PROVIDERS: ADMIT Internal Medicine; ATTEND Internal Medicine
DX: F31.32 Bipolar disorder, current episode depressed, moderate (principal); F10.20 Alcohol dependence, uncomplicated; F41.9 Anxiety disorder, unspecified; I10 Essential (primary) hypertension; D63.8 Anemia in other chronic diseases classified elsewhere; F17.200 Nicotine dependence, unspecified, uncomplicated; K21.9 Gastro-esophageal reflux disease without esophagitis; R29.6 Repeated falls; R56.9 Unspecified convulsions; Z79.899 Other long term (current) drug therapy

== ENCOUNTER 2024-11-17 18:02 | Emergency (ER) | payer MEDICARE, MEDICAID ==
[~2024-11-17] VITALS: Ht 170.2 cm; Wt 74.6 kg
[~2024-11-17 18:02] MED LIST changes: +HYDR-4570 PO; +NALT50TA4 PO; +OLAN1TAB20 PO
[2024-11-17 19:16] LABS: BASO # 0.1 10^3/uL (0.0-0.2); BASO % 0.8 % (0.0-1.0); EOS # 0.2 10^3/uL (0.0-0.5); EOS % 1.6 % (0.0-3.0); HEMATOCRIT 40.6 % (42.0-52.0); HEMOGLOBIN 14.1 g/dl (13.5-17.5); LYMPH # 3.3 10^3/uL (1.5-5.0); LYMPH % 34.7 % (24.0-44.0); MEAN CORPUSCULAR HEMOGLOBIN 34.9 pg (27.0-33.0); MEAN CORPUSCULAR HGB CONC 34.7 g/dl (32.0-36.5); MEAN CORPUSCULAR VOLUME 100.5 fl (80.0-96.0); MONO # 0.9 10^3/uL (0.0-0.8); MONO % 9.8 % (2.0-8.0); NEUTROPHILS % 52.9 % (36.0-66.0); PLATELET COUNT, AUTOMATED 349 10^3/uL (150-450); RED BLOOD COUNT 4.04 10^6/uL (4.30-6.10); WHITE BLOOD COUNT 9.5 10^3/uL (4.0-10.0)
[2024-11-17 19:41] LABS: AMPHETAMINES LEVEL URINE NEGATIVE (NEGATIVE); BARBITURATES URINE NEGATIVE (NEGATIVE); BENZODIAZEPINES URINE NEGATIVE (NEGATIVE); COCAINE METABOLITE URINE NEGATIVE (NEGATIVE); METHADONE URINE NEGATIVE (NEGATIVE); OPIATES URINE NEGATIVE (NEGATIVE); PHENCYCLIDINE URINE NEGATIVE (NEGATIVE)
[2024-11-17 19:42] LABS: SALICYLATE LEVEL < 3.0 MG/DL (<30)
[2024-11-17 19:43] LABS: ALBUMIN 3.6 G/DL (3.2-5.2); ALKALINE PHOSPHATASE 60 U/L (40-129); ALT/SGPT 23 U/L (7.0-40); AST/SGOT 26 U/L (<34); BILIRUBIN,DIRECT 0.1 MG/DL (<0.4); BILIRUBIN,TOTAL 0.4 MG/DL (0.3-1.2); BLOOD UREA NITROGEN 12 MG/DL (9-23); CALCIUM LEVEL 8.9 MG/DL (8.5-10.1); CARBON DIOXIDE LEVEL 23 MMOL/L (20-31); CHLORIDE LEVEL 97 MMOL/L (98-107); CREATININE FOR GFR 1.03 MG/DL (0.70-1.30); GLOMERULAR FILTRATION RATE 84.7 (>56); GLUCOSE, FASTING 91 MG/DL (60-100); POTASSIUM SERUM 4.5 MMOL/L (3.5-5.1); SODIUM LEVEL 131 MMOL/L (136-145); TOTAL PROTEIN 7.1 G/DL (5.7-8.2)
[2024-11-17 19:48] LABS: THYROID STIMULATING HORMONE 4.301 uIU/ML (0.55-4.78)
[2024-11-17 19:53] LABS: CPK CREATINE PHOSPHOKINASE 95 U/L (46-171)
[2024-11-17 19:53] LABS: CANNABINOIDS URINE POSITIVE (NEGATIVE)
[2024-11-17] MEDS: LORazepam 2 MG TAB PO ONE (20:07)
[2024-11-17 20:21] LABS: ETHYL ALCOHOL (ETHANOL) 0.319 % (0.000-0.010)
[2024-11-17] MEDS ORDERED: LORazepam 2 MG TAB PO PRN (21:00)
[2024-11-17] MEDS: THIAMINE 100 MG TAB PO SCH (21:31)
[2024-11-18] MEDS: FOLIC ACID 1MG TAB PO SCH (08:58)
[2024-11-18] MEDS: MULTIVITAMINS/MINERALS THERAP 1 TAB PO SCH (08:58)
[2024-11-18] MEDS ORDERED: OMEPRAZOLE 20MG CAP PO SCH (09:00)
[2024-11-18] MEDS ORDERED: amLODIPine 5 MG TAB PO SCH (09:00)
[2024-11-18] MEDS ORDERED: FLUoxetine 20MG CAP PO SCH (09:00)
[2024-11-18] MEDS ORDERED: NICOTINE 21MG/24HR 1 EA TRANSDERMAL TD SCH (09:00)
[2024-11-18] MEDS ORDERED: OLAN1TAB20 PO (09:08)
[2024-11-18] MEDS ORDERED: FLUO-96 PO (09:08)
[2024-11-18] MEDS ORDERED: NICO21DI38 TD (09:08)
[2024-11-18] MEDS ORDERED: NALT50TA4 PO (09:08)
[2024-11-18] MEDS ORDERED: HYDR-3363 PO (09:08)
[2024-11-18] MEDS ORDERED: HOME MED LIST COMPLETE! XX SCH (09:10)
[2024-11-18 13:17] VITALS: BP 121/83; TEMP 99; O2SAT 96
[2024-11-18] MEDS ORDERED: traZODone 50 MG TAB PO SCH (21:00)
[2024-11-18] MEDS ORDERED: NALTREXONE 50 MG TAB PO SCH (21:00)
[2024-11-18] MEDS ORDERED: OLANZapine 10 MG TAB PO SCH (21:00)
[2024-11-19] MEDS ORDERED: VITAMIN D 50,000 UNITS CAPSULE (ERGOCALCIFEROL 1.25MG) PO SCH (09:00)
== END 2024-11-18 13:34 | disposition home or self-care (01) ==
LOC: M ED 18:02 → EDBD 18:02 → M ED 11-18 13:34
DX: F43.21 Adjustment disorder with depressed mood (principal); F10.129 Alcohol abuse with intoxication, unspecified; R45.851 Suicidal ideations; F32.A Depression, unspecified; F17.200 Nicotine dependence, unspecified, uncomplicated; Z79.899 Other long term (current) drug therapy

== ENCOUNTER 2024-11-25 21:30 | Emergency (ER) | payer MEDICARE, MEDICAID ==
[~2024-11-25 21:30] MED LIST changes: +FLUO-96 PO; +NICO21DI38 TD
[2024-11-25 22:31] LABS: HEMATOCRIT 39.5 % (42.0-52.0); MEAN CORPUSCULAR HEMOGLOBIN 35.3 pg (27.0-33.0); MEAN CORPUSCULAR HGB CONC 35.4 g/dl (32.0-36.5); MEAN CORPUSCULAR VOLUME 99.5 fl (80.0-96.0); PLATELET COUNT, AUTOMATED 274 10^3/uL (150-450); RED BLOOD COUNT 3.97 10^6/uL (4.30-6.10); WHITE BLOOD COUNT 9.3 10^3/uL (4.0-10.0)
[2024-11-25 22:52] LABS: AMPHETAMINES LEVEL URINE NEGATIVE (NEGATIVE); BARBITURATES URINE NEGATIVE (NEGATIVE); BENZODIAZEPINES URINE NEGATIVE (NEGATIVE); COCAINE METABOLITE URINE NEGATIVE (NEGATIVE); METHADONE URINE NEGATIVE (NEGATIVE)
[2024-11-25 22:53] LABS: CANNABINOIDS URINE POSITIVE (NEGATIVE); OPIATES URINE NEGATIVE (NEGATIVE); PHENCYCLIDINE URINE NEGATIVE (NEGATIVE)
[2024-11-25 22:56] LABS: SALICYLATE LEVEL < 3.0 MG/DL (<30)
[2024-11-25 22:57] LABS: ALBUMIN 3.8 G/DL (3.2-5.2); ALKALINE PHOSPHATASE 57 U/L (40-129); ALT/SGPT 13 U/L (7.0-40); AST/SGOT 19 U/L (<34); BILIRUBIN,DIRECT < 0.1 MG/DL (<0.4); BILIRUBIN,TOTAL 0.2 MG/DL (0.3-1.2); BLOOD UREA NITROGEN 8 MG/DL (9-23); CALCIUM LEVEL 8.9 MG/DL (8.5-10.1); CARBON DIOXIDE LEVEL 24 MMOL/L (20-31); CHLORIDE LEVEL 109 MMOL/L (98-107); CREATININE FOR GFR 0.79 MG/DL (0.70-1.30); GLOMERULAR FILTRATION RATE > 90.0 (>56); GLUCOSE, FASTING 97 MG/DL (60-100); SODIUM LEVEL 143 MMOL/L (136-145); TOTAL PROTEIN 7.2 G/DL (5.7-8.2)
[2024-11-25 22:59] LABS: THYROID STIMULATING HORMONE 4.024 uIU/ML (0.55-4.78)
[2024-11-25 23:16] LABS: ETHYL ALCOHOL (ETHANOL) 0.309 % (0.000-0.010)
[2024-11-25] MEDS ORDERED: LORazepam 2 MG TAB PO PRN (23:20)
[2024-11-26] MEDS ORDERED: HOME MED LIST COMPLETE! XX SCH (10:40)
[2024-11-26] MEDS: MULTIVITAMINS/MINERALS THERAP 1 TAB PO SCH (10:49)
[2024-11-26] MEDS: amLODIPine 5 MG TAB PO ONE (10:50)
[2024-11-26] MEDS: FOLIC ACID 1MG TAB PO SCH (10:51)
[2024-11-26] MEDS: THIAMINE 100 MG TAB PO SCH (10:51)
[2024-11-26] MEDS: FLUoxetine 20MG CAP PO ONE (10:51)
[2024-11-26] MEDS ORDERED: NALTREXONE 50 MG TAB PO SCH (11:00)
[2024-11-26 13:26] VITALS: BP 141/91; TEMP 98.9; O2SAT 98
[2024-11-27] MEDS ORDERED: NALTREXONE 50 MG TAB PO SCH (10:30)
== END 2024-11-26 14:00 | disposition home or self-care (01) ==
LOC: M ED 21:30
DX: F10.129 Alcohol abuse with intoxication, unspecified (principal); Z79.899 Other long term (current) drug therapy

== ENCOUNTER 2025-02-07 18:48 | Inpatient (IN) | payer MEDICARE, MEDICAID ==
[~2025-02-07] VITALS: Ht 175.3 cm; Wt 73.0 kg
[~2025-02-07 18:48] MED LIST changes: +FAMO1TAB11 PO; +HYDR-3364 PO; -HYDR-4570 PO; +LATU40TA2 PO; +NICO1DIS12 TD; +PROZ10CA11 PO; -PROZ10CA7 PO
[2025-02-07 19:38] LABS: PLATELET COUNT, AUTOMATED 299 10^3/uL (150-450)
[2025-02-07 20:05] LABS: AMPHETAMINES LEVEL URINE NEGATIVE (NEGATIVE); BARBITURATES URINE NEGATIVE (NEGATIVE); BENZODIAZEPINES URINE NEGATIVE (NEGATIVE); COCAINE METABOLITE URINE NEGATIVE (NEGATIVE); METHADONE URINE NEGATIVE (NEGATIVE); OPIATES URINE NEGATIVE (NEGATIVE); PHENCYCLIDINE URINE NEGATIVE (NEGATIVE)
[2025-02-07 20:08] LABS: ETHYL ALCOHOL (ETHANOL) 0.265 % (0.000-0.010)
[2025-02-07 20:10] LABS: ALT/SGPT 12 U/L (7.0-40); AST/SGOT 22 U/L (<34); CALCIUM LEVEL 9.2 MG/DL (8.5-10.1); CANNABINOIDS URINE POSITIVE (NEGATIVE); CARBON DIOXIDE LEVEL 28 MMOL/L (20-31); CHLORIDE LEVEL 102 MMOL/L (98-107); CREATININE FOR GFR 0.80 MG/DL (0.70-1.30); GLOMERULAR FILTRATION RATE > 90.0 (>56); POTASSIUM SERUM 4.7 MMOL/L (3.5-5.1); SALICYLATE LEVEL < 3.0 MG/DL (<30); SODIUM LEVEL 140 MMOL/L (136-145)
[2025-02-08] MEDS ORDERED: IBUPROFEN 400 MG TAB PO PRN (04:30)
[2025-02-08] MEDS ORDERED: traZODone 50 MG TAB PO PRN (04:30)
[2025-02-08] MEDS ORDERED: MAALOX 30 ML SUSP *UDC PO PRN (04:30)
[2025-02-08] MEDS ORDERED: MOM 30 ML SUSPENSION UDC PO PRN (04:30)
[2025-02-08] MEDS ORDERED: ACETAMINOPHEN 325 MG TAB PO PRN (04:30)
[2025-02-08] MEDS ORDERED: LATU40TA2 PO (05:10)
[2025-02-08] MEDS ORDERED: OLAN1TAB20 PO (05:10)
[2025-02-08] MEDS ORDERED: HOME MED LIST COMPLETE! XX SCH (05:15)
[2025-02-08 05:47] VITALS: BP 136/81; TEMP 97.2; O2SAT 99
[2025-02-08] MEDS: LURASIDONE HCL 40 MG TAB PO SCH (08:00)
[2025-02-08] MEDS: MULTIVITAMINS/MINERALS THERAP 1 TAB PO SCH (08:53)
[2025-02-08] MEDS: FOLIC ACID 1 MG TAB PO SCH (08:54)
[2025-02-08] MEDS: THIAMINE 100 MG TAB PO SCH (08:54)
[2025-02-08] MEDS: NICOTINE 14 MG/24 HR TRANSDERMAL TD SCH (08:54)
[2025-02-08] MEDS: amLODIPine 5 MG TAB PO SCH (10:12)
[2025-02-08] MEDS: FLUoxetine 20 MG CAP PO SCH (10:13)
[2025-02-08] MEDS: FAMOTIDINE 20 MG TAB PO SCH (10:13)
[2025-02-08] MEDS: OLANZapine 10 MG TAB PO SCH (10:13)
[2025-02-08] MEDS: LURASIDONE HCL 20 MG TAB PO SCH (10:17)
[2025-02-08 15:23] VITALS: BP 143/82; TEMP 97.9; O2SAT 100
[2025-02-08 17:00] VITALS: BP 143/82
[2025-02-08] MEDS: RAMELTEON 8 MG TAB PO SCH (20:58)
[2025-02-08] MEDS: NALTREXONE 50 MG TAB PO SCH (20:58)
[2025-02-08] MEDS ORDERED: traZODone 100 MG TAB PO SCH (21:00)
[2025-02-08 22:00] VITALS: BP 145/80
[2025-02-09 06:30] VITALS: BP 142/77; TEMP 97.1; O2SAT 100
[2025-02-09 06:42] VITALS: BP 142/77
[2025-02-09 15:00] VITALS: BP 127/91
[2025-02-09 16:25] VITALS: BP 142/75; TEMP 97.2; O2SAT 100
[2025-02-09 22:00] VITALS: BP 138/85
[2025-02-10 06:29] VITALS: BP 144/82; TEMP 97.5; O2SAT 99
[2025-02-10 09:04] VITALS: BP 119/90
[2025-02-10] MEDS: LURASIDONE HCL 40 MG TAB PO SCH (09:04)
[2025-02-10] MEDS ORDERED: LATU40TA2 PO (11:52)
[2025-02-10] MEDS ORDERED: HYDR-3363 PO (11:52)
[2025-02-10] MEDS ORDERED: RAME8TAB2 PO (11:52)
[2025-02-10 14:52] VITALS: BP 125/73
== END 2025-02-10 15:43 | disposition home or self-care (01) | DRG 885 ==
LOC: M ED 18:48 → M ED INP 02-08 04:29 → M PSY 02-08 05:31
PROVIDERS: ADMIT Psychiatry & Neurology Neurology; ATTEND Psychiatry & Neurology Neurology
DX: F31.81 Bipolar II disorder (principal); F10.239 Alcohol dependence with withdrawal, unspecified; R45.851 Suicidal ideations; Z59.00 Homelessness unspecified; F10.220 Alcohol dependence with intoxication, uncomplicated; F41.9 Anxiety disorder, unspecified; K44.9 Diaphragmatic hernia without obstruction or gangrene; F17.210 Nicotine dependence, cigarettes, uncomplicated; F12.90 Cannabis use, unspecified, uncomplicated; I10 Essential (primary) hypertension; K21.9 Gastro-esophageal reflux disease without esophagitis; Z91.51 Personal history of suicidal behavior; Z79.899 Other long term (current) drug therapy

== ENCOUNTER 2025-02-25 19:57 | Emergency (ER) | payer MEDICARE, MEDICAID ==
[~2025-02-25 19:57] MED LIST changes: +RAME8TAB2 PO
[2025-02-25 20:36] LABS: PLATELET COUNT, AUTOMATED 325 10^3/uL (150-450)
[2025-02-25 20:57] LABS: AMPHETAMINES LEVEL URINE NEGATIVE (NEGATIVE); BARBITURATES URINE NEGATIVE (NEGATIVE); BENZODIAZEPINES URINE NEGATIVE (NEGATIVE); COCAINE METABOLITE URINE NEGATIVE (NEGATIVE); METHADONE URINE NEGATIVE (NEGATIVE); OPIATES URINE NEGATIVE (NEGATIVE); PHENCYCLIDINE URINE NEGATIVE (NEGATIVE)
[2025-02-25 20:59] LABS: SALICYLATE LEVEL < 3.0 MG/DL (<30)
[2025-02-25 21:00] LABS: ALT/SGPT 15 U/L (7.0-40); AST/SGOT 24 U/L (<34); CALCIUM LEVEL 9.9 MG/DL (8.5-10.1); CARBON DIOXIDE LEVEL 29 MMOL/L (20-31); CHLORIDE LEVEL 101 MMOL/L (98-107); CREATININE FOR GFR 0.98 MG/DL (0.70-1.30); GLOMERULAR FILTRATION RATE 89.9 (>56); POTASSIUM SERUM 4.6 MMOL/L (3.5-5.1); SODIUM LEVEL 138 MMOL/L (136-145)
[2025-02-25 21:05] LABS: CANNABINOIDS URINE POSITIVE (NEGATIVE)
[2025-02-25] MEDS ORDERED: HOME MED LIST COMPLETE! XX SCH (21:05)
[2025-02-25 21:34] LABS: ETHYL ALCOHOL (ETHANOL) 0.338 % (0.000-0.010)
[2025-02-26 12:41] VITALS: BP 159/99; TEMP 97.5; O2SAT 99
== END 2025-02-26 12:57 | disposition home or self-care (01) ==
LOC: M ED 19:57
DX: F10.14 Alcohol abuse with alcohol-induced mood disorder (principal); F32.A Depression, unspecified; F41.9 Anxiety disorder, unspecified; M54.50 Low back pain, unspecified; F17.200 Nicotine dependence, unspecified, uncomplicated; Z79.899 Other long term (current) drug therapy